=== PATIENT | female | born 1975 | race Caucasian/White ===

== ENCOUNTER 2025-02-21 14:37 | Inpatient (IN) | payer OTHER ==
[~2025-02-21] VITALS: Ht 165.1 cm; Wt 75.6 kg
[2025-02-21 15:07] LABS: Urine Bacteria None Seen /hpf (None Seen)
--- NOTE | 2025-02-21 15:30 | ED.PDOC ---
GI ASSESSMENT HPI Comments 49 year old female presents to the ED with a chief complaint of abdominal pain onset 2 weeks. Patient states she has been experiencing abdominal pain for the past two weeks as well as bilateral flank pain, generalized weakness, yellow bowel movement. Patient states for the past 2 months she has been drinking ETOH daily, last drink was 3 days ago. PMHx RA, gastritis, fibromyalgia. Denies chest pain ,shortness of breath, dizziness, nausea, vomiting. No other symptoms or modifying factors present at this time. Chief Complaint: Abdominal Pain Time Seen by MD: 15:05 Reviewed Notes: Medications, Allergies Information Source: Patient Mode of Arrival: Ambulatory Timing: Weeks Duration: Since onset Prehospital treatment: None Quality: Sharp Vomitus: None Stool: Yellow Severity: Moderate Recent: Ingestion of ETOH Recent Hx of: None Modifying Factors: Nothing Associated sign and symptoms: Abdominal Pain Past Medical History PAST MEDICAL HISTORY: Arthritis Past Medical History (Other): fibromyalgia, gastritis Surgical History: Denies all surgeries Family History Family History: Reviewed,noncontributory to illness, No family hx of Cancer, No family hx of DM, No family hx of Heart brina, No family hx of HTN, No family hx ofKidney brina, No family hx of Liver brina, No family hx of Lung brina, No family hx of Stroke Social History Smoker: Cigarettes, Other Alcohol: Heavy Drugs: Denies Drug Use Lives In: Home Constitutional: reports: weakness Gastrointestinal: reports: abdominal pain, others (yellow bowel movement) Genitourinary: reports: flank pain Neurological: reports: weakness Physical Exam General Appearance: No Apparent Distress, Normal HEENT: Normal ENT Inspection, Pharynx Normal, TMs Normal Neck: Full Range of Motion, Non-Tender, Normal, Normal Inspection Respiratory: Chest Non-Tender, Lungs Clear, No Accessory Muscle Use, No Respiratory Distress, Normal Breath Sounds Cardiovascular: No Edema, No JVD, No Murmur, No Gallop, Normal Peripheral Pulses, Regular Rate/Rhythm Breast Exam: Deferred Gastrointestinal: No Organomegaly, Non Tender, No Pulsatile Mass, Normal Bowel Sounds, Soft Genitalia: Deferred Pelvic: Deferred Rectal: Deferred Extremities: No calf tenderness, Normal capillary refill, Normal inspection, Normal range of motion, Non-tender, No pedal edema Musculoskeletal : Apperance: Normal Neurologic: Alert, starting gate driver II-XII nml as Tested, No Motor Deficits, Normal Affect, Normal Mood, No Sensory Deficits Cerebellar Function: Normal Reflexes: Normal Skin: Dry, Normal Color, Warm Lymphatic: No Adenopathy Was a procedure done? Was a procedure done?: No GI differential Dx Differential Diagnosis: Cholecystitis, Gastroenteritis, GI hemorrhage, Pancreatitis, UTI, Urolithiasis, Dehydration, Electrolyte Imbalance, Food Poisoning, Viral X-Ray, Labs, Meds, VS Vital Signs Date Time Temp Pulse Resp B/P (MAP) Pulse Ox O2 Delivery O2 Flow Rate FiO2 02/21/25 14:44 98.3 89 16 138/88 (105) 99 98.3 Lab Test 02/21/25 16:52 02/21/25 15:35 02/21/25 14:50 Range/Units Troponin I High Sensitivity 3 L < 3 L </=34 ng/L White Blood Count 4.2 L 4.4-10.8 10^3/uL Red Blood Count 3.66 L 4.0-5.20 10^6/uL Hemoglobin 12.1 L 12.2-16.2 g/dL Hematocrit 34.7 L 36.0-46.0 % Mean Corpuscular Volume 94.7 80.0-100.0 fL Mean Corpuscular Hemoglobin 33.0 H 28.0-32.0 pg Mean Corpuscular Hemoglobin Concent 34.8 32.0-36.0 g/dL Red Cell Distribution Width 14.6 H 11.8-14.3 % Platelet Count 166 140-450 10^3/uL Mean Platelet Volume 7.4 6.9-10.8 fL Neutrophils (%) (Auto) 66.8 37.0-80.0 % Lymphocytes (%) (Auto) 23.5 10.0-50.0 % Monocytes (%) (Auto) 7.1 0.0-12.0 % Eosinophils (%) (Auto) 2.0 0.0-7.0 % Basophils (%) (Auto) 0.6 0.0-2.0 % Neutrophils # (Auto) 2.8 1.6-8.6 10 ^3/uL Lymphocytes # (Auto) 1.0 0.4-5.4 10 ^3/uL Monocytes # (Auto) 0.3 0-1.3 10 ^3/uL Eosinophils # (Auto) 0.1 0-0.8 10 ^3/uL Basophils # (Auto) 0 0-0.2 10 ^3/uL Nucleated Red Blood Cells 0.1 % Sodium Level 139 136-145 mmol/L Potassium Level 3.2 L 3.5-5.1 mmol/L Chloride Level 104 98-107 mmol/L Carbon Dioxide Level 23 20-31 mmol/L Anion Gap 12 5-15 Blood Urea Nitrogen 9 9-23 mg/dL Creatinine 0.75 0.550-1.02 mg/dL Glomerular Filtration Rate Calc 98 >90 mL/min BUN/Creatinine Ratio 12.0 10.0-20.0 Serum Glucose 99 74-106 mg/dL Calcium Level 9.6 8.7-10.4 mg/dL Urine Color Yellow Yellow Urine Clarity Turbid H Clear Urine pH 6.5 5.0-9.0 Urine Specific [place] 1.028 1.001-1.035 Urine Protein 1+ H Negative Urine Ketones 1+ H Negative Urine Blood 3+ H Negative /uL Urine Nitrite Negative Negative Urine Bilirubin 1+ H Negative Urine Urobilinogen 2 H Negative mg/dL Urine Leukocyte Esterase Trace Negative /uL Urine RBC 25 0 - 4 /hpf Urine Microscopic WBC 14 H 0-5 /HPF Urine Squamous Epithelial Cells Mod <5 /hpf Urine Bacteria None seen None Seen /hpf Urine Mucus Moderate None Seen Urine Glucose Normal Normal mg/dL Time of 1ST Reevaluation: 15:35 Reevaluation 1ST: Unchanged Patient Education/Counseling: Diagnosis, Treatment, Prognosis Family Education/Counseling: No Family Present Departure 1 Departure Time of Disposition: 17:27 (Patient with generalized weakness, palpitations and worsening abdominal pain and dysuria. We will admit patient for further workup and expert consultation) Impression: Primary Impression: Generalized weakness Additional Impressions: Intractable abdominal pain Dysuria Disposition: ADMITTED INPATIENT Admit to: Med Surg Condition: Serious Critical Care Note Critical Care Time?: No Stability Stability form required: No I personally scribed for ANGELIA KELLY MD ([email or web address]) on 02/21/25 at 15:30. Electronically submitted by Aliyah Viera ([email or web address]). ANGELIA KELLY MD February 21, 2025 15:30
[2025-02-21 15:32] LABS: Urine Blood 3+ /uL (Negative); Urine Clarity Turbid (Clear); Urine Color Yellow (Yellow); Urine Mucus MODERATE (None Seen); Urine Protein, UAD 1+ (Negative); Urine Specific Gravity 1.028 (1.001-1.035); Urine Squamous Epithelial Cell MOD /hpf (<5); Urine Urobilinogen 2 mg/dL (Negative); Urine WBC 14 /HPF (0-5); Urine pH 6.5 (5.0-9.0)
--- NOTE | 2025-02-21 15:36 | DVH ---
CHEST RADIOGRAPH Indication: epigastric pain Technique: Single frontal view of the chest was obtained Comparison: None FINDINGS: The cardiac silhouette is unremarkable. The lungs demonstrate no pulmonary airspace consolidation. Th e pulmonary vasculature is unremarkable. There is no pleural effusion.. There is no pneumothorax. IMPRESSION: 1. No pulmonary airspace consolidation.<< >>
[2025-02-21 15:52] LABS: Basophils # (auto) 0 10 ^3/uL (0-0.2); Basophils % (auto) 0.6 % (0.0-2.0); Eosinophils # (auto) 0.1 10 ^3/uL (0-0.8); Hematocrit 34.7 % (36.0-46.0); Hemoglobin 12.1 g/dL (12.2-16.2); Lymphocytes % (auto) 23.5 % (10.0-50.0); Mean Corpuscular Hgb Conc. 34.8 g/dL (32.0-36.0); Mean Corpuscular Volume 94.7 fL (80.0-100.0); Monocytes # (auto) 0.3 10 ^3/uL (0-1.3); Monocytes % (auto) 7.1 % (0.0-12.0); Neutrophils # (auto) 2.8 10 ^3/uL (1.6-8.6); Neutrophils % (auto) 66.8 % (37.0-80.0); Nucleated Red Blood Cells % 0.1 %; Platelet Count (auto) 166 10^3/uL (140-450); Red Blood Cells 3.66 10^6/uL (4.0-5.20); Red Cell Distribution Width 14.6 % (11.8-14.3); White Blood Cell 4.2 10^3/uL (4.4-10.8)
[2025-02-21 16:07] LABS: Chloride 104 mmol/L (98-107); Sodium 139 mmol/L (136-145)
[2025-02-21 16:08] LABS: Anion Gap 12 (5-15); Calcium 9.6 mg/dL (8.7-10.4); Carbon Dioxide 23 mmol/L (20-31); Potassium 3.2 mmol/L (3.5-5.1)
[2025-02-21 16:13] LABS: Glucose 99 mg/dL (74-106)
[2025-02-21 16:14] LABS: Blood Urea Nitrogen 9 mg/dL (9-23)
[2025-02-21] MEDS: PANTOPRAZOLE 40 MG/10 ML VIAL INJ IV ONE (18:22)
[2025-02-21] MEDS: ONDANSETRON HCL 4 MG/2 ML VIAL IV ONE (18:22)
[2025-02-21] MEDS: KETOROLAC TROMETH 30 MG/ML 1ML VIAL IV ONE (18:22)
[2025-02-21] MEDS: SODIUM CHLORIDE 0.9% 1,000 ML IV ONE (18:27)
[2025-02-21 18:28] VITALS: PULSE 72; RESP 19; O2SAT 98
[2025-02-21] MEDS: IOHEXOL 300 MG/ML 100ML BOTTLE IJ ONE (18:47)
--- NOTE | 2025-02-21 19:18 | DVH ---
Exam: CT CT AB PEL WITH IV CON ONLY History: abdominal pain Comparison Study: None TECHNIQUE: Multidetector CT of the abdomen and pelvis with IV contrast. Axial, coronal and sagittal m ultiplanar reformats were obtained from the axial data set by the technologist. Radiation Dose Information: CT Dose: CTDI volume is 8.88 mGy. Dose-length product is 449.38 mGy*cm FINDINGS: Bibasilar atelectasis. Partially visualized heart is unremarkable. Liver, spleen, gallbladder, pancreas and adrenal glands are unremarkable. Subcentimeter hypodense bilateral renal lesions that are too small to characterize. Otherwise, kidney s, and ureters unremarkable. Mild wall thickening of the urinary bladder. Bilateral essure are noted . Uterus and adnexa otherwise unremarkable. Bilateral ovarian follicles are noted. Mild wall thickening of the distal esophagus. Mild wall thickening of the distal stomach and proximal small bowel. The remainder of the small bowel loops unremarkable. Appendix is unremarkable. Moderat e to large amount of fecal material within the colon. No evidence of intraperitoneal free air or free fluid. No evidence of aortic aneurysm or dissection. No significant lymphadenopathy. Tiny fat containing umbilical hernia. No evidence of acute osseous abnormalities. Moderate degenerati ve changes of the lumbar spine. Sclerotic focus over the right sacral ala, right pubic bone and left proximal femur which may represent bone islands with blastic lesions not excluded. IMPRESSION: Mild wall thickening of the urinary bladder. Recommend correlation with urinalysis for cystitis. Mild wall thickening of the distal esophagus, distal stomach and proximal small bowel Focus which may represent esophagitis and gastroenteritis respectively. Moderate to large amount of fecal material within the colon.
--- NOTE | 2025-02-21 21:56 | DVHHP2 ---
History of Present Illness History of Present Illness Patient is 49 years old female with a past medical history history of rheumatoid arthritis, arthritis, fibromyalgia, history of gastritis, anxiety, GERD came with a complaint of abdominal pain for 2 months. As per patient she has been having abdominal pain in the epigastric area for last 2 months, print she was 10/10 even this morning he she had pain 10/10, burning in nature, constant, aggravated by eating, decreased with the pain medication, no radiation. Patient also endorsed she has chronic cervical and back pain from fibromyalgia. Patient also endorsed that she has been having nausea and vomiting for a while, watery no blood. On further inquiry patient also endorsed dysuria for a few days and she also has a history of UTI 3 times in last couple of months as per patient. Patient is alcoholic, she 2 drinks per day, last drink she to was 3 days before. Patient denied any she running or tremor today. Patient reported she gets alternative constipation and diarrhea, no blood. Patient also Reported she had 3 UTI in last 2 months. Patient denied any fever, acute chest pain or shortness of breath acute joint swelling or redness any sick contact. Initial lab workup revealed Lipase 137, WBC 4.2, hemoglobin 12.1, potassium 3.2, urinalysis ketone positive, leukocyte esterase trace, WBC 14. Chest x-ray no acute abnormality noted. CT abdomen-Mild wall thickening of the urinary bladder. Recommend correlation with urinalysis for cystitis. Mild wall thickening of the distal esophagus, distal stomach and proximal small bowel Focus which may represent esophagitis and gastroenteritis respectively.Moderate to large amount of fecal material within the colon. Past Medical History rheumatoid arthritis, arthritis, fibromyalgia, history of gastritis, anxiety, GERD Past Surgical History Breast implant, Family History Dad has diabetes mellitus mom had breast carcinoma Past Social History Patient smoker, alcoholic to drink per day last drink 3 days before as per patient, denies substance abuse Review of Systems Review of Systems Allergy- NKDA Patient was seen today at the bedside. Cardiovascular- deny acute chest pain or shortness of breath or cough or palpitation Respiratory denies cough or short of breath or wheezing Musculoskeletal-denies acute joint swelling or tenderness or redness Neurological- denies acute dysarthria, dysphagia, change in vision Psychiatry- denies depression or SI or HI Skin- denies acute rash or purpura Allergies: Coded Allergies: NO KNOWN ALLERGIES (Unverified , 02/21/25) Medications Current Medications Medications Dose Ordered Sig/Janae Route Start Time Stop Time Status Last Admin Dose Admin Sodium Chloride 10 ml Q8HR IV 02/21/25 22:00 UNV Acetaminophen 650 mg Q6HP PRN PO 02/21/25 22:00 UNV Pantoprazole Sodium 40 mg DAILY IV 02/22/25 10:00 UNV Sucralfate 1 gm QIDACHS PO 02/21/25 22:00 UNV Ondansetron HCl 4 mg Q6HR IV 02/22/25 00:00 02/23/25 23:59 UNV Potassium Chloride 100 ml @ 50 mls/hr Q2H IV 02/21/25 22:00 02/22/25 01:59 UNV Exam Vital Signs Vital Signs Date Time Temp Pulse Resp B/P (MAP) Pulse Ox O2 Delivery O2 Flow Rate FiO2 02/21/25 20:52 98.0 103 20 133/86 (102) 98 98.0 02/21/25 18:28 Room Air* 0 21 Exam General examination- , alert, oriented HEENT- PEERLA, no acute nasal discharge Cardiovascular- S1-S2 audible, rate and rhythm regular, no murmur Respiratory- CTAB, no wheeze or rhonchi Gastrointestinal-epigastric tenderness+, bowel sound+. Nondistended Musculoskeletal-no acute joint swelling or tenderness or redness Lower extremity- leg edema Neurological- cranial nerves intact, no acute dysarthria or dysphagia Psychiatry- denies depression or SI or HI Skin- no acute rash or purpura Labs/Xrays Labs Test 02/21/25 16:52 02/21/25 15:35 02/21/25 14:50 Range/Units Troponin I High Sensitivity 3 L </=34 ng/L White Blood Count 4.2 L 4.4-10.8 10^3/uL Red Blood Count 3.66 L 4.0-5.20 10^6/uL Hemoglobin 12.1 L 12.2-16.2 g/dL Hematocrit 34.7 L 36.0-46.0 % Mean Corpuscular Volume 94.7 80.0-100.0 fL Mean Corpuscular Hemoglobin 33.0 H 28.0-32.0 pg Mean Corpuscular Hemoglobin Concent 34.8 32.0-36.0 g/dL Red Cell Distribution Width 14.6 H 11.8-14.3 % Platelet Count 166 140-450 10^3/uL Mean Platelet Volume 7.4 6.9-10.8 fL Neutrophils (%) (Auto) 66.8 37.0-80.0 % Lymphocytes (%) (Auto) 23.5 10.0-50.0 % Monocytes (%) (Auto) 7.1 0.0-12.0 % Eosinophils (%) (Auto) 2.0 0.0-7.0 % Basophils (%) (Auto) 0.6 0.0-2.0 % Neutrophils # (Auto) 2.8 1.6-8.6 10 ^3/uL Lymphocytes # (Auto) 1.0 0.4-5.4 10 ^3/uL Monocytes # (Auto) 0.3 0-1.3 10 ^3/uL Eosinophils # (Auto) 0.1 0-0.8 10 ^3/uL Basophils # (Auto) 0 0-0.2 10 ^3/uL Nucleated Red Blood Cells 0.1 % Sodium Level 139 136-145 mmol/L Potassium Level 3.2 L 3.5-5.1 mmol/L Chloride Level 104 98-107 mmol/L Carbon Dioxide Level 23 20-31 mmol/L Anion Gap 12 5-15 Blood Urea Nitrogen 9 9-23 mg/dL Creatinine 0.75 0.550-1.02 mg/dL Glomerular Filtration Rate Calc 98 >90 mL/min BUN/Creatinine Ratio 12.0 10.0-20.0 Serum Glucose 99 74-106 mg/dL Calcium Level 9.6 8.7-10.4 mg/dL Urine Color Yellow Yellow Urine Clarity Turbid H Clear Urine pH 6.5 5.0-9.0 Urine Specific [place] 1.028 1.001-1.035 Urine Protein 1+ H Negative Urine Ketones 1+ H Negative Urine Blood 3+ H Negative /uL Urine Nitrite Negative Negative Urine Bilirubin 1+ H Negative Urine Urobilinogen 2 H Negative mg/dL Urine Leukocyte Esterase Trace Negative /uL Urine RBC 25 0 - 4 /hpf Urine Microscopic WBC 14 H 0-5 /HPF Urine Squamous Epithelial Cells Mod <5 /hpf Urine Bacteria None seen None Seen /hpf Urine Mucus Moderate None Seen Urine Glucose Normal Normal mg/dL Assessment/Plan Assessment/Plan Assessment and plan Intractable nausea and vomiting and abdominal pain likely due to acute pancreatitis/acute gastroduodenitis Acute pancreatitis Intractable nausea and vomiting likely cannabis induced hyperemesis Hypokalemia UTI rheumatoid arthritis, arthritis, fibromyalgia, history of gastritis, anxiety, GERD CT abdomen-Mild wall thickening of the urinary bladder. Mild wall thickening of the distal esophagus, distal stomach and proximal small bowel Focus which may represent esophagitis and gastroenteritis respectively.Moderate to large amount of fecal material within the colon. UDS positive for cannabinoids and benzos Potassium 3.2 Hemoglobin 12.1 WBC 4.2 Lipase 137 Plan Ordered ultrasound of the hepatobiliary system including pancreas Ordered urine culture Ordered IV normal saline Ceftriaxone 1 g IV daily Ordered pantoprazole Ordered sucralfate Supplemented potassium Ordered Lactulose ordered Docusate Ordered HIV test Goals of care, Code status ; discussed with >15 minutes PUD prophylaxis: Pantoprazole DVT prophylaxis: Patient Ambulating Plan discussed with Dr. Werner , nursing staff, Total time spent on patient evaluation, chart review, assessment and plan, discussion discussion >35 minutes Plan discussed with: Patient, Other (RN) My Orders Orders - JUAN BAZAN RESIDENT Procedure Category Date Status Time Admit ADMIT 02/21/25 Transmitted 21:48 Code Status CODE 02/21/25 Transmitted 21:48 Sodium Chloride Lock PHA 02/21/25 Logged (Saline Lock Ns) 22:00 Complete Blood Count LAB 02/22/25 Verified 04:00 Comprehensive LAB 02/22/25 Verified Metabolic Panel 04:00 Acetaminophen Tablet PHA 02/21/25 Logged (Tylenol Tablet) 22:00 Clear Liq Diet DIET 02/22/25 Transmitted Breakfast Notify Of Changes SARY 02/21/25 In Process From Base 21:48 Pantoprazole PHA 02/21/25 Logged (Protonix) 22:00 Pantoprazole PHA 02/22/25 Logged (Protonix) 10:00 Sucralfate Tab PHA 02/21/25 Logged (Carafate Tab) 22:00 Sucralfate Tab PHA 02/21/25 Logged (Carafate Tab) 22:00 Ondansetron Hcl PHA 02/22/25 Transmitted (Zofran) 00:00 Potassium Chl PHA 02/21/25 Logged 20meq/100ml 22:00 Thyroid Stimulating LAB 02/21/25 Verified Hormone 21:52 Hemoglobin A1c LAB 02/21/25 Verified 21:52 Date of Service: February 21, 2025 Billing Provider: FLORENCE WERNER MD Common Visit Codes: [id number] INP/OBS CARE (HIGH) Secondary Visit Codes: [id number] CARE PLAN 30 MINUTES JUAN BAZAN RESIDENT February 21, 2025 21:56
[2025-02-21] MEDS ORDERED: POTASSIUM CHL 20MEQ/100ML 100 ML IV SCH (22:00)
[2025-02-21] MEDS: SODIUM CHLOR 0.9% PF (SALINE LOCK) 10ML VIAL/SYR IV SCH (22:00)
[2025-02-21 22:31] LABS: Cannabinoid Screen, Urine Pos (NEGATIVE)
[2025-02-21 22:34] LABS: Amphetamine Screen, Urine Neg (NEGATIVE); Barbiturate Scree,Urine Neg (NEGATIVE); Benzodiazephine Screen, Urine Pos (NEGATIVE); Cocaine Screen, Urine Neg (NEGATIVE); Opiate Scree,Urine Pos (NEGATIVE); Phencyclidine Screen, Urine Neg (NEGATIVE)
[2025-02-21] MEDS: SUCRALFATE 1 GM TAB PO ONE (23:05)
[2025-02-21] MEDS: POTASSIUM EFFERVESENT TAB 25 MEQ GT ONE (23:23)
[2025-02-21] MEDS: SUCRALFATE 1 GM TAB PO SCH (23:24)
[2025-02-21 23:30] VITALS: BP 138/90; PULSE 80; RESP 18; TEMP 98; O2SAT 98
[2025-02-21] MEDS ORDERED: LACTULOSE 20Gm/30ML SOLN PO PRN (23:30)
[2025-02-21 23:36] VITALS: PULSE 80; RESP 18; O2SAT 98
[2025-02-21 23:52] LABS: % Iron Saturation 17.4 % (15-50)
[2025-02-22] VITALS (7 sets, daily range): BP systolic 108–138; BP diastolic 61–90; PULSE 77–80; RESP 16–18; TEMP 97.8–98.8; O2SAT 94–98
[2025-02-22] MEDS: THIAMINE 100mg/ml INJ (200mg/2ml VIAL) IV ONE ×2 (00:25→06:30)
[2025-02-22] MEDS: PANTOPRAZOLE 40 MG/10 ML VIAL INJ IV ONE (00:29)
[2025-02-22] MEDS: ONDANSETRON HCL 4 MG/2 ML VIAL IV SCH (00:33)
[2025-02-22] MEDS: FOLIC ACID 1 MG in D5W 5% 50 ML INJ ONE (00:39)
[2025-02-22] MEDS: LACTULOSE 20Gm/30ML SOLN PO ONE (00:43)
[2025-02-22] MEDS: cefTRIAXone 1GM/50ML D5W 50 ML IV ONE (01:20)
[2025-02-22] MEDS: FOLIC ACID 1 MG, MAGNESIUM SULF SDV 50% 8 MEQ, MULTIPLE VITAMIN 10 ML, THIAMINE INJ 100... INJ STA (02:09)
[2025-02-22 06:58] LABS: Basophils # (auto) 0 10 ^3/uL (0-0.2); Basophils % (auto) 0.5 % (0.0-2.0); Eosinophils # (auto) 0.1 10 ^3/uL (0-0.8); Eosinophils % (auto) 2.7 % (0.0-7.0); Hemoglobin 10.4 g/dL (12.2-16.2); Lymphocytes # (auto) 1.4 10 ^3/uL (0.4-5.4); Lymphocytes % (auto) 33.7 % (10.0-50.0); Mean Corpuscular Hemoglobin 33.8 pg (28.0-32.0); Mean Corpuscular Hgb Conc. 34.7 g/dL (32.0-36.0); Mean Corpuscular Volume 97.3 fL (80.0-100.0); Monocytes # (auto) 0.3 10 ^3/uL (0-1.3); Monocytes % (auto) 7.4 % (0.0-12.0); Neutrophils # (auto) 2.2 10 ^3/uL (1.6-8.6); Neutrophils % (auto) 55.7 % (37.0-80.0); Nucleated Red Blood Cells % 0.6 %; Platelet Count (auto) 142 10^3/uL (140-450); Red Blood Cells 3.08 10^6/uL (4.0-5.20); Red Cell Distribution Width 15.3 % (11.8-14.3)
[2025-02-22 07:07] LABS: Alanine Aminotransferase 17 U/L (7-40); Albumin 3.7 g/dL (3.2-4.8); Alkaline Phosphatase 88 U/L (46-116); Anion Gap 12 (5-15); Aspartate Aminotransferase 35 U/L (13-40); BUN/Creatinine Ratio 9.1 (10.0-20.0); CRP High Sensitivity 0.41 mg/dL (<1.0); Calcium 8.7 mg/dL (8.7-10.4); Carbon Dioxide 22 mmol/L (20-31); Chloride 106 mmol/L (98-107); Cholesterol 174 mg/dL (< 200); Glucose 80 mg/dL (74-106); LDL Cholesterol 72 mg/dL (< 100); Sodium 140 mmol/L (136-145); Total Protein 5.8 g/dL (5.7-8.2); Triglycerides 61 mg/dL (< 150)
[2025-02-22 07:17] LABS: Bilirubin, Total 0.3 mg/dL (0.2-1.0); Blood Urea Nitrogen 6 mg/dL (9-23); HDL Cholesterol 87 mg/dL (40-59); Potassium 2.9 mmol/L (3.5-5.1)
[2025-02-22] MEDS: cefTRIAXone 1GM/50ML D5W 50 ML IV SCH (09:35)
[2025-02-22] MEDS: PANTOPRAZOLE 40 MG/10 ML VIAL INJ IV SCH (09:36)
[2025-02-22] MEDS: FOLIC ACID 1 MG TAB PO SCH (09:36)
[2025-02-22] MEDS: POTASSIUM EFFERVESENT TAB 25 MEQ PO ONE (09:38)
[2025-02-22] MEDS: THIAMINE 100mg/ml INJ (200mg/2ml VIAL) IV SCH (09:40)
[2025-02-22] MEDS: DOCUSATE SOD 100 MG CAP PO SCH (09:45)
[2025-02-22] MEDS: SODIUM CHLORIDE 0.9% 1,000 ML IV SCH (09:45)
[2025-02-22] MEDS ORDERED: FOLIC ACID 1 MG in D5W 5% 50 ML INJ SCH (10:00)
--- NOTE | 2025-02-22 10:19 | DVH ---
EXAM: US Abdomen Limited, Right Upper Quadrant CLINICAL INDICATION: abdominal pain TECHNIQUE: Real-time ultrasound of the right upper quadrant with image documentation. COMPARISON: None FINDINGS: LIVER: Liver measures up to 15.2 cm. Fatty infiltration of the liver. No intrahepatic bile duct d ilation. GALLBLADDER: Unremarkable. No gallstones. COMMON BILE DUCT: Unremarkable as visualized. No stones. No dilation. Common bile duct measures 0.43 cm in diameter. PANCREAS: Unremarkable as visualized. RIGHT KIDNEY: Right kidney measures up to 10.1 cm. No stones. No hydronephrosis. OTHER FINDINGS: . . IMPRESSION: Fatty infiltration of the liver.
[2025-02-22] MEDS: HYDROcodone-ACET 5/325MG TAB PO PRN (14:49)
--- NOTE | 2025-02-22 17:03 | DVHPNRES ---
Progress Note Date Seen: February 22, 2025 Resident Creating Document: JACKIE GUILLENCELESTINO RESIDENT Medical Necessity Reason Pt with a Central, PICC or Fol: No Subjective Review of Systems Patient is a 49-year-old female with a past medical history of rheumatoid arthritis, fibromyalgia, history of gastritis, GERD, anxiety, substance use and alcohol use disorder presented to the ED with a chief complaint of worsening abdominal pain for the last 2 weeks. Patient reports that earlier this year in October she started to have worsening abdominal pain associated with the symptoms of indigestion, intractable nausea and loose stools. Patient reported that she has been drinking alcohol about 2-3 large drinks every day, smokes cigarettes and vapes. In November she underwent a upper EGD at [facility] where she was told about having gastritis and was started on Protonix which according to the patient gives her some relief. Patient continues to smoke and drink alcohol. Patient denied any hematemesis or melena, weight loss, night sweats. Patient also reported of dysuria and has been treated for UTI in the last couple of months for 3 times. Past medical history: As per HPI Past surgical history: Breast implant, Social history: Patient is a current smoker half pack per day, drinks alcohol 3 drinks per day, substance use Home medications: Protonix 40 mg, simethicone, venlafaxine 37.5, bupropion 15 mg b.i.d., alprazolam 1 mg Review of systems Patient seen and examined at the bedside Reports of diffuse abdominal pain and nausea but no vomiting Denies any fever, chills Objective vital signs Vital Sign Date Time Temp Pulse Resp B/P (MAP) Pulse Ox O2 Delivery O2 Flow Rate FiO2 02/22/25 16:00 98.5 80 16 121/83 (96) 97 98.5 02/21/25 23:36 Room Air* 0 21 Total Intake and Output 02/21/25 02/21/25 02/22/25 15:00 23:00 07:00 Intake Total 1000 ml 1000 ml Balance 1000 ml 1000 ml medications Current Medications Medications Dose Ordered Sig/Janae Route Start Time Stop Time Status Last Admin Dose Admin Sodium Chloride 10 ml Q8HR IV 02/21/25 22:00 02/22/25 06:11 10 ML Acetaminophen 650 mg Q6HP PRN PO 02/21/25 22:00 Pantoprazole Sodium 40 mg DAILY IV 02/22/25 10:00 02/22/25 09:36 40 MG Thiamine HCl 100 mg DAILY IV 02/22/25 10:00 Ceftriaxone Sodium 50 ml @ 100 mls/hr DAILY@09 IV 02/22/25 09:00 02/22/25 09:35 100 MLS/HR Folic Acid 1 mg DAILY PO 02/22/25 10:00 02/22/25 09:36 1 MG Sodium Chloride 1,000 ml @ 100 mls/hr Q10H IV 02/22/25 06:00 02/22/25 09:45 100 MLS/HR Ondansetron HCl 4 mg Q6HPRN PRN IV 02/22/25 18:00 Sucralfate 1 gm TID@0600,1130,2200 PO 02/22/25 22:00 Acetaminophen/ Hydrocodone Bitart 1 tab Q6HPRN PRN PO 02/22/25 14:15 02/22/25 14:49 1 TAB Alprazolam 0.5 mg DAILYPRN PRN PO 02/22/25 14:15 Examination Constitutional: Patient is alert and oriented to time, place and person does not appear to be any acute distress Gen - no pallor, no icterus, no cyanosis, no clubbing, no LAD, no edema . Skin - Patients skin is warm and dry.. HEENT - normocephalic, atraumatic, moist mucous membranes. Neck - full ROM, no LAD, no JVD Pulmonary - B/L equal breath sounds. no crackles , no wheezing, no stridor. cardiovascular - regular S1,S2 heard. no murmurs heard. GI - soft, diffusely tender abdomen. no hepatospleenomegaly. Bowel sounds normoactive Neurological - Patient is A/O X 3 . Bilateral upper extremity strength 5/5, bilateral lower extremity strength 5/5, no facial droop, normal speech, no tremor, no sensory deficiets. laboratory and microbiology Laboratory Tests 02/22/25 04:53 Test 02/22/25 04:53 Range/Units Serum Glucose 80 74-106 mg/dL Problem List/Assessment/Plan Problem List/Assessment/Plan Intractable abdominal pain and nausea Acute pancreatitis less likely Acute on chronic gastroduodenitis ?Constipation GERD - CT abdomen pelvis shows mild wall thickening of the distal esophagus, distal stomach and proximal small will which may represent esophagitis and gastroenteritis - right upper quadrant ultrasound shows fatty infiltration of the liver, normal gallbladder and bile duct - IV Protonix - sucralfate p.o. - ceftriaxone 1 g daily - IV fluids - clear liquid diet - lactulose p.r.n. - gastroenterology consulted Alcohol use disorder CIWA score less than 8, no alcohol withdrawal Generalized anxiety disorder Major depressive disorder - alprazolam 0.5 mg prn - thiamine 100 mg IV - folic acid Hypokalemia - replenished DVT prophylaxis: Enoxaparin PUD prophylaxis: Protonix Goals of care discussed with the patient for over 29 minutes. Full code Plan discussed with Dr. Whatley Plan discussed with: Patient My Orders My Orders Orders - SERINA GUILLEN Procedure Category Date Status Time Ondansetron Hcl PHA 02/22/25 In Process (Zofran) 18:00 Sucralfate Susp PHA 02/22/25 In Process (Carafate Susp) 22:00 * Gi Dvh It Support Specialist CONS 02/22/25 Transmitted 12:50 T-Transglutaminase LAB 02/22/25 In Process (Ttg) Iga 12:50 Hydrocodone-Acet PHA 02/22/25 In Process 5/325mg Tab ([place] 14:15 Alprazolam Tablet PHA 02/22/25 In Process (Xanax Tablet) 14:15 Date of Service: February 22, 2025 Billing Provider: NARESH WHATLEY MD Common Visit Codes: [id number] INP/OBS CARE(HIGH) SERINA GUILLEN RESIDENT February 22, 2025 17:03 NARESH WHATLEY MD February 22, 2025 21:46
--- NOTE | 2025-02-22 19:39 | DVHINCON2 ---
Date of service: February 22, [address] Shannon Reason for Consultation Abdominal pain nausea vomiting History of Present Illness This 49-year-old female with a history of rheumatoid arthritis point fibromyalgia admitted with complains nausea vomiting no bleeding patient has got severe back pain and cervical pain from fibromyalgia and arthritis patient has been having also problems with UTI on and off. Patient has history of moderate drinking also. Patient now has got complaints of constipation and and diarrhea alternating no bleeding In the ER her lipase level was found to be 137 CT scan showed some mild thickening of the bladder. And some thickening of the distal esophagus stomach and proximal small bowel possibility of esophagitis and gastroenteritis to be considered as well as also some moderate amount of fecal material within the colon Patient is getting a repeat CAT scan with oral contrast tomorrow. Past Medical History Rheumatoid arthritis fibromyalgia history of gastritis GERD Past Surgical History Breast implants history Family History: Diabetes mellitus G8 MOTHER FH: breast cancer G8 FATHER Family History Mom with breast cancer Social History History of smoking and drinking denies substance abuse Allergies: Coded Allergies: NO KNOWN ALLERGIES (Unverified , 02/21/25) Current Medications Current Medications Medications (Trade) Dose Ordered Sig/Janae Route PRN Reason Start Time Stop Time Status Last Admin Sodium Chloride (Saline Lock Ns) 10 ml Q8HR IV 02/21/25 22:00 02/22/25 06:11 Acetaminophen (Tylenol Tablet) 650 mg Q6HP PRN PO PAIN SCALE 1-3 OR TEMP>100.4 02/21/25 22:00 Pantoprazole Sodium (Protonix) 40 mg DAILY IV 02/22/25 10:00 02/22/25 09:36 Sucralfate (Carafate Tab) 1 gm QIDACHS PO 02/21/25 22:00 02/22/25 12:59 DC 02/22/25 12:11 Ondansetron HCl (Zofran) 4 mg Q6HR IV 02/22/25 00:00 02/22/25 12:59 DC 02/22/25 12:11 Potassium Chloride 100 ml @ 50 mls/hr Q2H IV 02/21/25 22:00 02/21/25 22:57 DC Thiamine HCl 100 mg DAILY IV 02/22/25 10:00 Folic Acid 1 mg/ Dextrose 50.2 ml @ 200.8 mls/ hr DAILY INJ 02/22/25 10:00 02/22/25 02:39 DC Folic Acid 1 mg/ Magnesium Sulfate 8 meq/ Multivitamins 10 ml/Thiamine HCl 100 mg/Sodium Chloride 1,013.2 ml @ 126.247 mls/hr DAILY@1800 STAT INJ 02/21/25 21:58 02/22/25 05:59 DC 02/22/25 02:09 Ceftriaxone Sodium 50 ml @ 100 mls/hr DAILY@09 IV 02/22/25 09:00 02/22/25 09:35 Lactulose 30 ml BIDPRN PRN PO FOR CONSTIPATION 02/21/25 23:30 02/22/25 12:59 DC Docusate Sodium (Colace Capsule) 100 mg BID PO 02/22/25 10:00 02/22/25 12:59 DC Folic Acid 1 mg DAILY PO 02/22/25 10:00 02/22/25 09:36 Sodium Chloride 1,000 ml @ 100 mls/hr Q10H IV 02/22/25 06:00 02/22/25 09:45 Ondansetron HCl (Zofran) 4 mg Q6HPRN PRN IV NAUSEA / VOMITING 02/22/25 18:00 Sucralfate (Carafate Susp) 1 gm TID@0600,1130,2200 PO 02/22/25 22:00 Acetaminophen/ Hydrocodone Bitart ([place] 5/325MG Tab) 1 tab Q6HPRN PRN PO MODERATE PAIN (4-6 PAIN SCALE) 02/22/25 14:15 02/22/25 14:49 Alprazolam (Xanax Tablet) 0.5 mg DAILYPRN PRN PO ANXIETY 02/22/25 14:15 Enoxaparin Sodium (Lovenox) 40 mg DAILY SC 02/23/25 10:00 Review of Systems Noncontributory Vital Signs Vital Signs Date Time Temp Pulse Resp B/P (MAP) Pulse Ox O2 Delivery O2 Flow Rate FiO2 02/22/25 16:00 98.5 80 16 121/83 (96) 97 98.5 02/22/25 07:40 Room Air* 0 21 Physical Exam Moderately built and nourished female in no acute distress chronically ill- looking and depressed Vitals stable HEENT examination no pallor no icterus Lungs are clear Cardiovascular unremarkable Abdomen soft mild tenderness in the epigastrium and both upper quadrants No rigidity no guarding no masses bowel sounds normal Extremities no edema Neuro grossly intact Labs/Diagnostic Data Labs Test 02/22/25 13:05 02/22/25 07:19 02/22/25 04:53 02/22/25 02:15 Range/Units Lactic Acid Level 0.7 0.4-2.0 mmol/L White Blood Count 4.0 L 4.4-10.8 10^3/uL Red Blood Count 3.08 L 4.0-5.20 10^6/uL Hemoglobin 10.4 L 12.2-16.2 g/dL Hematocrit 30.0 #L 36.0-46.0 % Mean Corpuscular Volume 97.3 80.0-100.0 fL Mean Corpuscular Hemoglobin 33.8 H 28.0-32.0 pg Mean Corpuscular Hemoglobin Concent 34.7 32.0-36.0 g/dL Red Cell Distribution Width 15.3 H 11.8-14.3 % Platelet Count 142 140-450 10^3/uL Mean Platelet Volume 7.4 6.9-10.8 fL Neutrophils (%) (Auto) 55.7 37.0-80.0 % Lymphocytes (%) (Auto) 33.7 10.0-50.0 % Monocytes (%) (Auto) 7.4 0.0-12.0 % Eosinophils (%) (Auto) 2.7 0.0-7.0 % Basophils (%) (Auto) 0.5 0.0-2.0 % Neutrophils # (Auto) 2.2 1.6-8.6 10 ^3/uL Lymphocytes # (Auto) 1.4 0.4-5.4 10 ^3/uL Monocytes # (Auto) 0.3 0-1.3 10 ^3/uL Eosinophils # (Auto) 0.1 0-0.8 10 ^3/uL Basophils # (Auto) 0 0-0.2 10 ^3/uL Nucleated Red Blood Cells 0.6 % Sodium Level 140 136-145 mmol/L Potassium Level 2.9 L 3.5-5.1 mmol/L Chloride Level 106 98-107 mmol/L Carbon Dioxide Level 22 20-31 mmol/L Anion Gap 12 5-15 Blood Urea Nitrogen 6 L 9-23 mg/dL Creatinine 0.66 0.550-1.02 mg/dL Glomerular Filtration Rate Calc 108 >90 mL/min BUN/Creatinine Ratio 9.1 L 10.0-20.0 Serum Glucose 80 74-106 mg/dL Calcium Level 8.7 8.7-10.4 mg/dL Total Bilirubin 0.3 0.2-1.0 mg/dL Aspartate Amino Transferase (AST) 35 13-40 U/L Alanine Aminotransferase (ALT) 17 7-40 U/L Alkaline Phosphatase 88 46-116 U/L C-Reactive Protein High Sensitivity 0.41 <1.0 mg/dL Total Protein 5.8 5.7-8.2 g/dL Albumin 3.7 3.2-4.8 g/dL Triglycerides Level 61 < 150 mg/dL Cholesterol Level 174 < 200 mg/dL LDL Cholesterol 72 < 100 mg/dL HDL Cholesterol 87 H 40-59 mg/dL Beta HCG, Quantitative 0.9 L 1.5-4.2 mIU/mL Stool for White Cells None seen Test 02/21/25 16:52 02/21/25 15:35 02/21/25 14:50 Range/Units Magnesium Level 2.0 1.6-2.6 mg/dL Troponin I High Sensitivity 3 L </=34 ng/L Lipase 136 H 12-53 U/L Hemoglobin A1c 4.7 <5.7 % A1C Iron Level 56 50-170 ug/dL Total Iron Binding Capacity 322 250-425 ug/dL Percent Iron Saturation 17.4 15-50 % Ferritin 77.4 10-291 ng/mL Thyroid Stimulating Hormone (TSH) 1.40 0.55-4.78 uIU/mL Plasma/Serum Blood Alcohol < 3.0 <10 mg/dL Urine Color Yellow Yellow Urine Clarity Turbid H Clear Urine pH 6.5 5.0-9.0 Urine Specific [place] 1.028 1.001-1.035 Urine Protein 1+ H Negative Urine Ketones 1+ H Negative Urine Blood 3+ H Negative /uL Urine Nitrite Negative Negative Urine Bilirubin 1+ H Negative Urine Urobilinogen 2 H Negative mg/dL Urine Leukocyte Esterase Trace Negative /uL Urine RBC 25 0 - 4 /hpf Urine Microscopic WBC 14 H 0-5 /HPF Urine Squamous Epithelial Cells Mod <5 /hpf Urine Bacteria None seen None Seen /hpf Urine Mucus Moderate None Seen Urine Glucose Normal Normal mg/dL Urine Opiates Screen Pos NEGATIVE Urine Fentanyl Screen Neg NEGATIVE Urine Barbiturates Screen Neg NEGATIVE Urine Phencyclidine Screen Neg NEGATIVE Urine Amphetamines Screen Neg NEGATIVE Urine Benzodiazepines Screen Pos NEGATIVE Urine Cocaine Screen Neg NEGATIVE Urine Cannabinoids Screen Pos NEGATIVE Assessment 41-year-old female with a history of arthritis fibromyalgia and GERD admitted with complaints of abdominal pain nausea vomiting some diarrhea we will alternatives constipation unable to keep food down patient has history of some UTI her lipase level was high has had some mild abdomen in tenderness CT scans in the epigastric area CT scan showed mild wall thickening of the esophagus the distal stomach and small bowel. Clinical impression is possible esophagitis gastritis possibility of enteritis of the pathology can not be excluded Plan/Recommendation will recommend EGD evaluation to evaluate the distal esophagus especially to ensure there is any strictures or other pathology or eosinophilic esophagitis and further workup and treatment depending upon the findings will Wait until the CT scan is done with contrast and then decide about the EGD evaluation depending upon the findings will treat with PPIs in the meanwhile Thank you Dr. Mixon Plan discussed with: Patient UMU MIXON MD February 22, 2025 19:39
[2025-02-22] MEDS: ALPRAZolam 0.5 MG TAB PO PRN (19:49)
[2025-02-22] MEDS: SUCRALFATE 1 GM/10 ML ORAL SUSP PO SCH (21:05)
[2025-02-22] MEDS: SOD CHL 0.9%/ KCL 40MEQ 1,000 ML IV SCH (22:44)
[2025-02-23] VITALS (7 sets, daily range): BP systolic 128–139; BP diastolic 70–95; PULSE 67–79; RESP 15–18; TEMP 97.8–98.8; O2SAT 94–100
[2025-02-23 08:49] LABS: Sodium 143 mmol/L (136-145)
[2025-02-23 08:50] LABS: Anion Gap 10 (5-15); Carbon Dioxide 25 mmol/L (20-31)
[2025-02-23 08:55] LABS: Glucose 86 mg/dL (74-106)
[2025-02-23 08:56] LABS: Magnesium 2.3 mg/dL (1.6-2.6)
[2025-02-23 08:57] LABS: Amylase 88 U/L (30-118)
[2025-02-23 08:58] LABS: Phosphorus 3.7 mg/dL (2.4-5.1)
[2025-02-23 08:59] LABS: Basophils # (auto) 0 10 ^3/uL (0-0.2); Basophils % (auto) 0.6 % (0.0-2.0); Eosinophils # (auto) 0.1 10 ^3/uL (0-0.8); Eosinophils % (auto) 2.8 % (0.0-7.0); Hematocrit 29.8 % (36.0-46.0); Hemoglobin 10.4 g/dL (12.2-16.2); Lymphocytes # (auto) 1.3 10 ^3/uL (0.4-5.4); Lymphocytes % (auto) 37.4 % (10.0-50.0); Mean Corpuscular Hemoglobin 33.6 pg (28.0-32.0); Mean Corpuscular Hgb Conc. 35.1 g/dL (32.0-36.0); Mean Corpuscular Volume 95.9 fL (80.0-100.0); Monocytes # (auto) 0.3 10 ^3/uL (0-1.3); Monocytes % (auto) 8.5 % (0.0-12.0); Neutrophils # (auto) 1.7 10 ^3/uL (1.6-8.6); Neutrophils % (auto) 50.7 % (37.0-80.0); Nucleated Red Blood Cells % 0.1 %; Platelet Count (auto) 149 10^3/uL (140-450); Red Blood Cells 3.11 10^6/uL (4.0-5.20); Red Cell Distribution Width 15.4 % (11.8-14.3); White Blood Cell 3.4 10^3/uL (4.4-10.8)
[2025-02-23 09:00] LABS: BUN/Creatinine Ratio 7.9 (10.0-20.0); Blood Urea Nitrogen < 5 mg/dL (9-23); Calcium 8.1 mg/dL (8.7-10.4); Chloride 108 mmol/L (98-107); Lipase 135 U/L (12-53); Potassium 3.3 mmol/L (3.5-5.1)
[2025-02-23] MEDS ORDERED: OMNIPAQUE 12mg/ml 500ml ORAL SOLUTION PO ONE (09:48)
[2025-02-23] MEDS ORDERED: IOHEXOL 300 MG/ML 100ML BOTTLE IJ ONE (09:49)
[2025-02-23] MEDS: ENOXAPARIN SOD 40 MG/0.4 ML SYRINGE SC SCH (10:00)
--- NOTE | 2025-02-23 10:59 | DVH ---
Procedure: CT CT ABD PELVIS W CON-ORAL IV 02/23/2025 09:55 AM Indication: gastroduodenitis on CT, pancreatitis Comparison Study: CT CT AB PEL WITH IV CON ONLY on DOS: 02/21/25 Technique: Axial images were obtained and reformatted in coronal and sagittal planes. All CT scans at this medical facility are performed using dose modulation techniques as appropriate to a performed e xam including the following: Automated exposure control was utilized; adjustment of the MA and/or KV according to patient size; and use of iterative reconstruction technique. CT Dose: CTDI volume is 5.9 mGy. Dose-length product is 325 mGy*cm FINDINGS: Lower Chest: Unremarkable. Hepatobiliary: Unremarkable. Spleen: Unremarkable. Pancreas: Unremarkable. Adrenal Glands: Unremarkable. tract: The kidneys are normal in size bilaterally without hydronephrosis or nephrolithiasis. The u rinary bladder is unremarkable. GI tract: Distal esophageal wall thickening. The stomach is grossly normal in appearance. No evidence of small bowel obstruction. Circumferential mural thickening of terminal ileum and entire large krystal l noted with mild pericolonic inflammation. The appendix is mildly dilated measuring up to 1 cm in ca liber with mild mural thickening. No appendicolith. No free fluid or air in the abdomen or pelvis. Lymphatics: No mesenteric, retroperitoneal or periportal lymphadenopathy. Vasculature: The abdominal aorta is normal in caliber. Pelvic Organs: Anteverted uterus. Bilateral tubal ligation strings are noted. No adnexal lesion. Bones/soft tissues: No acute abnormality. Other: None. IMPRESSION: 1. Terminal ileitis and pancolitis that could be infectious or inflammatory in nature. In addition, t here is mild dilatation mural thickening of the appendix that could be related to the underlying ente rocolitis or reflect developing appendicitis. Recommend clinical and biochemical correlation.
--- NOTE | 2025-02-23 11:27 | DVHPN2 ---
Subjective Had epigastric pain earlier this morning. She has diarrhea Reviewed: Care Plan, H&P, Labs, Medications, Previous Orders, Radiology, Other (Building Drafter/GI) Changes from previous H/P or p: No Changes Objective Vitals Vital Signs Date Time Temp Pulse Resp B/P (MAP) Pulse Ox O2 Delivery O2 Flow Rate FiO2 02/23/25 09:00 98.1 71 15 131/70 (90) 97 98.1 02/22/25 20:00 Room Air* 0 21 Intake/Output Intake and Output 02/23/25 07:00 Intake Total 3630 ml Output Total 800 ml Balance 2830 ml Intake Oral 1980 ml IV Total 1650 ml Output Urine Total 800 ml # Voids 4 # Bowel Movements 9 General Appearance: Alert, Oriented X3, Cooperative, No acute distress HEENT: Atraumatic Lungs: Clear to auscultation Cardiovascular: Regular rate Abdomen: Soft, Other (With tenderness in the epigastric and upper quadrant area) Medications Current Medications Medications Dose Ordered Sig/Janae Route Start Time Stop Time Status Last Admin Dose Admin Sodium Chloride 10 ml Q8HR IV 02/21/25 22:00 02/23/25 05:33 10 ML Acetaminophen 650 mg Q6HP PRN PO 02/21/25 22:00 Pantoprazole Sodium 40 mg DAILY IV 02/22/25 10:00 02/22/25 09:36 40 MG Thiamine HCl 100 mg DAILY IV 02/22/25 10:00 Ceftriaxone Sodium 50 ml @ 100 mls/hr DAILY@09 IV 02/22/25 09:00 02/22/25 09:35 100 MLS/HR Folic Acid 1 mg DAILY PO 02/22/25 10:00 02/22/25 09:36 1 MG Ondansetron HCl 4 mg Q6HPRN PRN IV 02/22/25 18:00 Sucralfate 1 gm TID@0600,1130,2200 PO 02/22/25 22:00 02/23/25 05:33 1 GM Acetaminophen/ Hydrocodone Bitart 1 tab Q6HPRN PRN PO 02/22/25 14:15 02/22/25 14:49 1 TAB Alprazolam 0.5 mg DAILYPRN PRN PO 02/22/25 14:15 02/22/25 19:49 0.5 MG Enoxaparin Sodium 40 mg DAILY SC 02/23/25 10:00 Potassium Chloride/Sodium Chloride 1,000 ml @ 100 mls/hr Q10H IV 02/22/25 22:00 02/22/25 22:44 100 MLS/HR Laboratory Results Laboratory Tests 02/23/25 07:09 Chemistry Test 02/23/25 07:09 Calcium Level 8.1 mg/dL (8.7-10.4) L Magnesium Level 2.3 mg/dL (1.6-2.6) Phosphorus Level 3.7 mg/dL (2.4-5.1) Lipid panel Test 02/23/25 07:09 Lipase 135 U/L (12-53) H Urinalysis Test 02/21/25 14:50 Urine Color Yellow (Yellow) Urine Clarity Turbid (Clear) H Urine pH 6.5 (5.0-9.0) Urine Specific [place] 1.028 (1.001-1.035) Urine Protein 1+ (Negative) H Urine Ketones 1+ (Negative) H Urine Blood 3+ /uL (Negative) H Urine Nitrite Negative (Negative) Urine Bilirubin 1+ (Negative) H Urine Urobilinogen 2 mg/dL (Negative) H Urine Leukocyte Esterase Trace /uL (Negative) Urine RBC 25 /hpf (0 - 4) Urine Microscopic WBC 14 /HPF (0-5) H Urine Squamous Epithelial Cells Mod /hpf (<5) Urine Bacteria None seen /hpf (None Seen) Urine Mucus Moderate (None Seen) Urine Glucose Normal mg/dL (Normal) Assessment/Plan Assessment/Plan Abdominal pain Esophagitis Terminal ileitis and pancolitis Questionable appendicitis Leukopenia Anemia Hypokalemia Questionable pancreatitis with elevated lipase Plan: IV Flagyl . EGD and possibly colonoscopy by GI. Further plan per orders Plan discussed with: Patient My Orders Orders - NARESH WHATLEY MD Procedure Category Date Status Time Sod Chl 0.9%/ Kcl PHA 02/22/25 In Process 40meq 22:00 Date of Service: February 23, 2025 Billing Provider: NARESH WHATLEY MD Common Visit Codes: [id number] INP/OBS CARE(HIGH) NARESH WHATLEY MD February 23, 2025 11:27
[2025-02-23 12:12] LABS: INR 1.03 (0.9-1.15); Prothrombin Time 10.9 sec (9.3-11.8)
--- NOTE | 2025-02-23 14:02 | DVHINCON2 ---
Date of service: February 23, 2025 History of Present Illness 49-year-old female complaining of two week history of epigastric abdominal pain radiating to bilateral flank region. Patient has been drinking alcohol daily for past two months. Patient also reports some yellowish bowel movements. Currently he is able to tolerate p.o. without nausea or vomiting. Past Medical History History of gastritis. Fibromyalgia. Arthritis. Past Surgical History Breast augmentation. Family History: Diabetes mellitus G8 MOTHER FH: breast cancer G8 FATHER Family History Noncontributory Social History Heavy alcohol and tobacco use. Denies any IV drug use. Allergies: Coded Allergies: NO KNOWN ALLERGIES (Unverified , 02/21/25) Current Medications Current Medications Medications (Trade) Dose Ordered Sig/Janae Route PRN Reason Start Time Stop Time Status Last Admin Ondansetron HCl (Zofran) 4 mg Q6HPRN PRN IV NAUSEA / VOMITING 02/22/25 18:00 Sucralfate (Carafate Susp) 1 gm TID@0600,1130,2200 PO 02/22/25 22:00 02/23/25 11:30 Acetaminophen/ Hydrocodone Bitart ([place] 5/325MG Tab) 1 tab Q6HPRN PRN PO MODERATE PAIN (4-6 PAIN SCALE) 02/22/25 14:15 02/22/25 14:49 Alprazolam (Xanax Tablet) 0.5 mg DAILYPRN PRN PO ANXIETY 02/22/25 14:15 02/22/25 19:49 Enoxaparin Sodium (Lovenox) 40 mg DAILY SC 02/23/25 10:00 Potassium Chloride/Sodium Chloride 1,000 ml @ 100 mls/hr Q10H IV 02/22/25 22:00 02/22/25 22:44 Metronidazole 100 ml @ 100 mls/hr Q8HR IV 02/23/25 14:00 Vital Signs Vital Signs Date Time Temp Pulse Resp B/P (MAP) Pulse Ox O2 Delivery O2 Flow Rate FiO2 02/23/25 09:00 98.1 71 15 131/70 (90) 97 98.1 02/23/25 08:05 Room Air* 0 21 Physical Exam GEN: Age-appropriate female in no acute distress. Alert. HEENT: Normocephalic atraumatic. Moist mucous membranes. Anicteric sclerae. CV: RRR Respiratory: CTAB ABD: Soft. Very minimal diffuse tenderness to palpation without guarding or rebound. Nondistended. CT of the abdomen and pelvis: Terminal ileitis and harley colitis. Mild dilatation of the mural thickening of the appendix. Labs/Diagnostic Data Labs Test 02/23/25 12:07 02/23/25 07:09 02/22/25 13:05 02/22/25 07:19 Range/Units Prothrombin Time 10.9 9.3-11.8 sec Prothrombin Time INR 1.03 0.9-1.15 White Blood Count 3.4 L 4.4-10.8 10^3/uL Red Blood Count 3.11 L 4.0-5.20 10^6/uL Hemoglobin 10.4 L 12.2-16.2 g/dL Hematocrit 29.8 L 36.0-46.0 % Mean Corpuscular Volume 95.9 80.0-100.0 fL Mean Corpuscular Hemoglobin 33.6 H 28.0-32.0 pg Mean Corpuscular Hemoglobin Concent 35.1 32.0-36.0 g/dL Red Cell Distribution Width 15.4 H 11.8-14.3 % Platelet Count 149 140-450 10^3/uL Mean Platelet Volume 7.3 6.9-10.8 fL Neutrophils (%) (Auto) 50.7 37.0-80.0 % Lymphocytes (%) (Auto) 37.4 10.0-50.0 % Monocytes (%) (Auto) 8.5 0.0-12.0 % Eosinophils (%) (Auto) 2.8 0.0-7.0 % Basophils (%) (Auto) 0.6 0.0-2.0 % Neutrophils # (Auto) 1.7 1.6-8.6 10 ^3/uL Lymphocytes # (Auto) 1.3 0.4-5.4 10 ^3/uL Monocytes # (Auto) 0.3 0-1.3 10 ^3/uL Eosinophils # (Auto) 0.1 0-0.8 10 ^3/uL Basophils # (Auto) 0 0-0.2 10 ^3/uL Nucleated Red Blood Cells 0.1 % Sodium Level 143 136-145 mmol/L Potassium Level 3.3 L 3.5-5.1 mmol/L Chloride Level 108 H 98-107 mmol/L Carbon Dioxide Level 25 20-31 mmol/L Anion Gap 10 5-15 Blood Urea Nitrogen < 5 L 9-23 mg/dL Creatinine 0.63 0.550-1.02 mg/dL Glomerular Filtration Rate Calc 109 >90 mL/min BUN/Creatinine Ratio 7.9 L 10.0-20.0 Serum Glucose 86 74-106 mg/dL Calcium Level 8.1 L 8.7-10.4 mg/dL Phosphorus Level 3.7 2.4-5.1 mg/dL Magnesium Level 2.3 1.6-2.6 mg/dL Amylase Level 88 30-118 U/L Lipase 135 H 12-53 U/L Lactic Acid Level 0.7 0.4-2.0 mmol/L Test 02/22/25 04:53 02/22/25 02:15 02/21/25 16:52 02/21/25 15:35 Range/Units Total Bilirubin 0.3 0.2-1.0 mg/dL Aspartate Amino Transferase (AST) 35 13-40 U/L Alanine Aminotransferase (ALT) 17 7-40 U/L Alkaline Phosphatase 88 46-116 U/L C-Reactive Protein High Sensitivity 0.41 <1.0 mg/dL Total Protein 5.8 5.7-8.2 g/dL Albumin 3.7 3.2-4.8 g/dL Triglycerides Level 61 < 150 mg/dL Cholesterol Level 174 < 200 mg/dL LDL Cholesterol 72 < 100 mg/dL HDL Cholesterol 87 H 40-59 mg/dL Beta HCG, Quantitative 0.9 L 1.5-4.2 mIU/mL Stool for White Cells None seen Troponin I High Sensitivity 3 L </=34 ng/L Hemoglobin A1c 4.7 <5.7 % A1C Iron Level 56 50-170 ug/dL Total Iron Binding Capacity 322 250-425 ug/dL Percent Iron Saturation 17.4 15-50 % Ferritin 77.4 10-291 ng/mL Thyroid Stimulating Hormone (TSH) 1.40 0.55-4.78 uIU/mL Plasma/Serum Blood Alcohol < 3.0 <10 mg/dL HIV (1&2) Antibody Negative Negative Test 02/21/25 14:50 Range/Units Urine Color Yellow Yellow Urine Clarity Turbid H Clear Urine pH 6.5 5.0-9.0 Urine Specific [place] 1.028 1.001-1.035 Urine Protein 1+ H Negative Urine Ketones 1+ H Negative Urine Blood 3+ H Negative /uL Urine Nitrite Negative Negative Urine Bilirubin 1+ H Negative Urine Urobilinogen 2 H Negative mg/dL Urine Leukocyte Esterase Trace Negative /uL Urine RBC 25 0 - 4 /hpf Urine Microscopic WBC 14 H 0-5 /HPF Urine Squamous Epithelial Cells Mod <5 /hpf Urine Bacteria None seen None Seen /hpf Urine Mucus Moderate None Seen Urine Glucose Normal Normal mg/dL Urine Opiates Screen Pos NEGATIVE Urine Fentanyl Screen Neg NEGATIVE Urine Barbiturates Screen Neg NEGATIVE Urine Phencyclidine Screen Neg NEGATIVE Urine Amphetamines Screen Neg NEGATIVE Urine Benzodiazepines Screen Pos NEGATIVE Urine Cocaine Screen Neg NEGATIVE Urine Cannabinoids Screen Pos NEGATIVE Microbiology Date/Time Source Procedure Growth Status 02/21/25 14:50 Voided Urine Urine Culture - Preliminary Resulted Assessment 1. Ileitis and pancolitis 2. Appendicitis is very unlikely. Plan/Recommendation 1. No acute indication for surgical intervention at this time. 2. Recommended outpatient colonoscopy. Patient agreed. Plan discussed with: Patient HALINA HOWE MD February 23, 2025 14:02
[2025-02-23] MEDS: ONDANSETRON HCL 4 MG/2 ML VIAL IV PRN (14:46)
[2025-02-23] MEDS: metroNIDAZOLE 500MG/100ML 100 ML IV SCH (14:52)
[2025-02-23] MEDS: POTASSIUM EFFERVESENT TAB 25 MEQ PO ONE (15:38)
--- NOTE | 2025-02-23 19:01 | DVHPN2 ---
Progress Note - Dictate Date Seen: February 23, 2025 Medical Necessity Reason Pt with a Central, PICC or Fol: No Subjective Abdominal pain nausea heartburn etc. still persistent Had a CT scan done with contrast showed some inflammation in the right colon as well as in the possible colitis or appendicitis could not be ruled out vital signs Vital Sign Date Time Temp Pulse Resp B/P (MAP) Pulse Ox O2 Delivery O2 Flow Rate FiO2 02/23/25 17:00 98.4 67 17 128/84 (99) 97 98.4 02/23/25 08:05 Room Air* 0 21 Total Intake and Output 02/22/25 02/22/25 02/23/25 14:59 22:59 06:59 Intake Total 50 ml 2880 ml 700 ml Output Total 600 ml 200 ml Balance 50 ml 2280 ml 500 ml medications Current Medications Medications Dose Ordered Sig/Janae Route Start Time Stop Time Status Last Admin Dose Admin Sodium Chloride 10 ml Q8HR IV 02/21/25 22:00 02/23/25 14:47 10 ML Acetaminophen 650 mg Q6HP PRN PO 02/21/25 22:00 Pantoprazole Sodium 40 mg DAILY IV 02/22/25 10:00 02/23/25 11:25 40 MG Thiamine HCl 100 mg DAILY IV 02/22/25 10:00 02/23/25 11:25 100 MG Ceftriaxone Sodium 50 ml @ 100 mls/hr DAILY@09 IV 02/22/25 09:00 02/23/25 11:30 100 MLS/HR Folic Acid 1 mg DAILY PO 02/22/25 10:00 02/23/25 11:28 1 MG Ondansetron HCl 4 mg Q6HPRN PRN IV 02/22/25 18:00 02/23/25 14:46 4 MG Sucralfate 1 gm TID@0600,1130,2200 PO 02/22/25 22:00 02/23/25 11:30 1 GM Acetaminophen/ Hydrocodone Bitart 1 tab Q6HPRN PRN PO 02/22/25 14:15 02/23/25 14:50 1 TAB Alprazolam 0.5 mg DAILYPRN PRN PO 02/22/25 14:15 02/22/25 19:49 0.5 MG Enoxaparin Sodium 40 mg DAILY SC 02/23/25 10:00 Potassium Chloride/Sodium Chloride 1,000 ml @ 100 mls/hr Q10H IV 02/22/25 22:00 02/22/25 22:44 100 MLS/HR Metronidazole 100 ml @ 100 mls/hr Q8HR IV 02/23/25 14:00 02/23/25 14:52 100 MLS/HR objective Abdomen is soft nontender no masses bowel sounds normal laboratory and microbiology Laboratory Tests 02/23/25 07:09 Test 02/23/25 07:09 Range/Units Serum Glucose 86 74-106 mg/dL Assessment/Plan 41-year-old female with a history of arthritis fibromyalgia and GERD admitted with complaints of abdominal pain nausea vomiting some diarrhea We will recommend Ultrasound of the appendix Stool studies If symptoms persist may need endoscopic evaluation of the stomach as well as the colon is difficult to see about the upper GI tract because of the fact that it was done any done with IV contrasts will recommend EGD colon if symptoms persist Thank you Dr. Mixon Plan discussed with: Patient UMU MIXON MD February 23, 2025 19:01
--- NOTE | 2025-02-23 21:58 | DVH ---
Exam: US RIGHT LOWER QUAD Date: 02/23/2025 08:54 PM Clinical History: Abdomen Comparison: US ABDOMEN LIMITED on DOS: 02/22/25 Technique: Targeted sonographic evaluation of the soft tissues of the appendix was obtained utilizing grayscale and color Doppler imaging. Findings: There is no evidence for drainable collection. There is no evidence for solid or cystic mass in the site. No vascular abnormalities identified at this site. There was a noncompressible tubular struc ture in the right lower quadrant measuring 6.8 mm. It was able to be compressed to 6.3 mm. IMPRESSION: 1. Noncompressible tubular structure right lower quadrant was compressed to 6.3 mm. No other findings to suggest appendicitis were noted.
[2025-02-24 05:00] VITALS: BP 123/82; PULSE 59; RESP 18; TEMP 97.6; O2SAT 99
[2025-02-24 06:25] LABS: Basophils # (auto) 0 10 ^3/uL (0-0.2); Basophils % (auto) 0.6 % (0.0-2.0); Eosinophils # (auto) 0.1 10 ^3/uL (0-0.8); Eosinophils % (auto) 3.1 % (0.0-7.0); Hematocrit 33.9 % (36.0-46.0); Hemoglobin 11.5 g/dL (12.2-16.2); Lymphocytes # (auto) 1.5 10 ^3/uL (0.4-5.4); Mean Corpuscular Hemoglobin 32.9 pg (28.0-32.0); Mean Corpuscular Volume 96.8 fL (80.0-100.0); Monocytes # (auto) 0.4 10 ^3/uL (0-1.3); Neutrophils # (auto) 1.6 10 ^3/uL (1.6-8.6); Neutrophils % (auto) 45.3 % (37.0-80.0); Nucleated Red Blood Cells % 0.3 %; Platelet Count (auto) 197 10^3/uL (140-450); Red Cell Distribution Width 14.9 % (11.8-14.3); White Blood Cell 3.6 10^3/uL (4.4-10.8)
[2025-02-24 06:51] LABS: Alanine Aminotransferase 25 U/L (7-40); Albumin 3.9 g/dL (3.2-4.8); Alkaline Phosphatase 83 U/L (46-116); Anion Gap 10 (5-15); Aspartate Aminotransferase 33 U/L (13-40); Calcium 9.4 mg/dL (8.7-10.4); Carbon Dioxide 27 mmol/L (20-31); Chloride 105 mmol/L (98-107); Glucose 78 mg/dL (74-106); Potassium 3.7 mmol/L (3.5-5.1); Sodium 142 mmol/L (136-145)
[2025-02-24 07:04] LABS: BUN/Creatinine Ratio 6.5 (10.0-20.0); Blood Urea Nitrogen < 5 mg/dL (9-23)
[2025-02-24 07:34] LABS: Erythrocyte Sedimentation Rate 7 mm/hr (0-20)
[2025-02-24 08:21] LABS: Bilirubin, Total 0.2 mg/dL (0.2-1.0)
[2025-02-24 08:36] VITALS: BP 135/88; PULSE 81; RESP 18; TEMP 97.9; O2SAT 96
[2025-02-24 09:32] LABS: Lipase 124 U/L (12-53)
[2025-02-24 11:01] LABS: Hepatitis B Surface Antigen Negative (Negative); Hepatitis C Antibody Negative (Negative)
[2025-02-24] MEDS: ACETAMINOPHEN 325 MG TAB PO PRN (12:08)
[2025-02-24 12:35] VITALS: BP 129/87; PULSE 60; RESP 18; TEMP 97.8; O2SAT 96
[2025-02-24] MEDS: GOLYTELY 4L KIT PO ONE (12:45)
[2025-02-24 16:37] VITALS: BP 122/87; PULSE 76; RESP 18; TEMP 98.1; O2SAT 98
--- NOTE | 2025-02-24 16:39 | DVHPNRES ---
Progress Note Date Seen: February 24, 2025 Resident Creating Document: SERINA GUILLEN RESIDENT Medical Necessity Reason Pt with a Central, PICC or Fol: No Subjective Review of Systems Patient seen and examined at the bedside Reports of diffuse abdominal pain and nausea but no vomiting mutliplpe episodes of loose bowel movement, no blood per rectum Denies any fever, chills Objective vital signs Vital Sign Date Time Temp Pulse Resp B/P (MAP) Pulse Ox O2 Delivery O2 Flow Rate FiO2 02/24/25 12:35 97.8 60 18 129/87 (101) 96 97.8 02/24/25 08:05 Room Air* 0 21 Total Intake and Output 02/23/25 02/23/25 02/24/25 15:00 23:00 07:00 Intake Total 50 ml 1150 ml 820 ml Balance 50 ml 1150 ml 820 ml medications Current Medications Medications Dose Ordered Sig/Janae Route Start Time Stop Time Status Last Admin Dose Admin Sodium Chloride 10 ml Q8HR IV 02/21/25 22:00 02/24/25 06:02 10 ML Acetaminophen 650 mg Q6HP PRN PO 02/21/25 22:00 02/24/25 12:08 650 MG Pantoprazole Sodium 40 mg DAILY IV 02/22/25 10:00 02/24/25 09:39 40 MG Thiamine HCl 100 mg DAILY IV 02/22/25 10:00 02/24/25 09:37 100 MG Ceftriaxone Sodium 50 ml @ 100 mls/hr DAILY@09 IV 02/22/25 09:00 02/24/25 09:45 100 MLS/HR Folic Acid 1 mg DAILY PO 02/22/25 10:00 02/24/25 09:42 1 MG Ondansetron HCl 4 mg Q6HPRN PRN IV 02/22/25 18:00 02/23/25 14:46 4 MG Sucralfate 1 gm TID@0600,1130,2200 PO 02/22/25 22:00 02/24/25 12:07 1 GM Acetaminophen/ Hydrocodone Bitart 1 tab Q6HPRN PRN PO 02/22/25 14:15 02/23/25 22:15 1 TAB Alprazolam 0.5 mg DAILYPRN PRN PO 02/22/25 14:15 02/24/25 12:42 0.5 MG Enoxaparin Sodium 40 mg DAILY SC 02/23/25 10:00 Potassium Chloride/Sodium Chloride 1,000 ml @ 100 mls/hr Q10H IV 02/22/25 22:00 02/24/25 04:00 100 MLS/HR Metronidazole 100 ml @ 100 mls/hr Q8HR IV 02/23/25 14:00 02/24/25 05:59 100 MLS/HR Examination Constitutional: Patient is alert and oriented to time, place and person does not appear to be any acute distress Gen - no pallor, no icterus, no cyanosis, no clubbing, no LAD, no edema . Skin - Patients skin is warm and dry. HEENT - normocephalic, atraumatic, moist mucous membranes. Neck - full ROM, no LAD, no JVD Pulmonary - B/L equal breath sounds. no crackles , no wheezing, no stridor. cardiovascular - regular S1,S2 heard. no murmurs heard. GI - soft, diffusely tender abdomen. no hepatospleenomegaly. Bowel sounds normoactive Neurological - Patient is A/O X 3 . Bilateral upper extremity strength 5/5, bilateral lower extremity strength 5/5, no facial droop, normal speech, no tremor, no sensory deficiets. laboratory and microbiology Laboratory Tests 02/24/25 05:04 Test 02/24/25 05:04 Range/Units Serum Glucose 78 74-106 mg/dL Microbiology Date/Time Source Procedure Growth Status 02/21/25 14:50 Voided Urine Urine Culture - Final Complete Problem List/Assessment/Plan Problem List/Assessment/Plan Intractable abdominal pain and nausea Acute pancreatitis less likely Acute on chronic gastroduodenitis ?Constipation GERD - CT abdomen pelvis shows mild wall thickening of the distal esophagus, distal stomach and proximal small will which may represent esophagitis and gastroenteritis - right upper quadrant ultrasound shows fatty infiltration of the liver, normal gallbladder and bile duct - IV Protonix - sucralfate p.o. - ceftriaxone 1 g daily - IV fluids - clear liquid diet - lactulose p.r.n. - CT abdomen pelvis with IV and oral contrast showed Terminal ileitis and pancolitis that could be infectious or inflammatory in nature. In addition, there is mild dilatation mural thickening of the appendix that could be related to the underlying enterocolitis or reflect developing appendicitis. - appendix ultrasound showed Noncompressible tubular structure right lower quadrant was compressed to 6.3 mm. No other findings to suggest appendicitis were noted. - gastroenterology recomended colonoscopy and upper EGD tomorrow Alcohol use disorder CIWA score less than 8, no alcohol withdrawal Generalized anxiety disorder Major depressive disorder - no suicidal/homicidal ideation - alprazolam 0.5 mg prn - thiamine 100 mg IV - folic acid Hypokalemia - replenished DVT prophylaxis: Enoxaparin PUD prophylaxis: Protonix Goals of care discussed with the patient for over 31 minutes. Full code Plan discussed with Dr. Elliott Plan discussed with: Patient My Orders My Orders Orders - SERINA GUILLEN Procedure Category Date Status Time Npo (Nothing By DIET 02/25/25 Transmitted Mouth) Diet Breakfast Date of Service: February 24, 2025 Billing Provider: DEVIN ELLIOTT MD Common Visit Codes: [id number] INP/OBS CARE(HIGH) SERINA GUILLEN RESIDENT February 24, 2025 16:39 DEVIN ELLIOTT MD February 25, 2025 12:49
[2025-02-24 20:00] VITALS: PULSE 89; RESP 17; O2SAT 99
--- NOTE | 2025-02-24 20:43 | DVHPN2 ---
Progress Note - Dictate Date Seen: February 24, 2025 Medical Necessity Reason Pt with a Central, PICC or Fol: No Subjective Abdominal pain nausea heartburn etc. still persistent Had a CT scan done with contrast showed some inflammation in the right colon as well as in the possible colitis or appendicitis could not be ruled out Ultrasound of the appendix did not show any gross problems Patient has complaints of abdominal pain diarrhea nausea heartburn vital signs Vital Sign Date Time Temp Pulse Resp B/P (MAP) Pulse Ox O2 Delivery O2 Flow Rate FiO2 02/24/25 16:37 98.1 76 18 122/87 (99) 98 98.1 02/24/25 08:05 Room Air* 0 21 Total Intake and Output 02/23/25 02/23/25 02/24/25 15:00 23:00 07:00 Intake Total 50 ml 1150 ml 820 ml Balance 50 ml 1150 ml 820 ml medications Current Medications Medications Dose Ordered Sig/Janae Route Start Time Stop Time Status Last Admin Dose Admin Sodium Chloride 10 ml Q8HR IV 02/21/25 22:00 02/24/25 16:45 10 ML Acetaminophen 650 mg Q6HP PRN PO 02/21/25 22:00 02/24/25 12:08 650 MG Pantoprazole Sodium 40 mg DAILY IV 02/22/25 10:00 02/24/25 09:39 40 MG Thiamine HCl 100 mg DAILY IV 02/22/25 10:00 02/24/25 09:37 100 MG Ceftriaxone Sodium 50 ml @ 100 mls/hr DAILY@09 IV 02/22/25 09:00 02/24/25 09:45 100 MLS/HR Folic Acid 1 mg DAILY PO 02/22/25 10:00 02/24/25 09:42 1 MG Ondansetron HCl 4 mg Q6HPRN PRN IV 02/22/25 18:00 02/23/25 14:46 4 MG Sucralfate 1 gm TID@0600,1130,2200 PO 02/22/25 22:00 02/24/25 12:07 1 GM Acetaminophen/ Hydrocodone Bitart 1 tab Q6HPRN PRN PO 02/22/25 14:15 02/24/25 16:53 1 TAB Alprazolam 0.5 mg DAILYPRN PRN PO 02/22/25 14:15 02/24/25 12:42 0.5 MG Enoxaparin Sodium 40 mg DAILY SC 02/23/25 10:00 Potassium Chloride/Sodium Chloride 1,000 ml @ 100 mls/hr Q10H IV 02/22/25 22:00 02/24/25 16:45 100 MLS/HR Metronidazole 100 ml @ 100 mls/hr Q8HR IV 02/23/25 14:00 02/24/25 16:38 100 MLS/HR objective Abdomen is soft nontender no masses bowel sounds normal Ultrasound of the abdomen for the appendix was unremarkable laboratory and microbiology Laboratory Tests 02/24/25 05:04 Test 02/24/25 05:04 Range/Units Serum Glucose 78 74-106 mg/dL Assessment/Plan 41-year-old female with a history of arthritis fibromyalgia and GERD admitted with complaints of abdominal pain nausea vomiting some diarrhea abnormal CAT scan with inflammation of the stomach duodenum esophagus as well as the colon Ultrasound of the appendix unremarkable Stool studies negative will recommend EGD colon since symptoms persistent Thank you Dr. Mixon Plan discussed with: Patient UMU MIXON MD February 24, 2025 20:43
[2025-02-24 21:00] VITALS: BP 134/78; PULSE 89; RESP 17; TEMP 98; O2SAT 99
[2025-02-25] VITALS (7 sets, daily range): BP systolic 91–121; BP diastolic 53–71; PULSE 57–90; RESP 14–20; TEMP 98–98.2; O2SAT 95–100
[2025-02-25 06:55] LABS: Basophils # (auto) 0 10 ^3/uL (0-0.2); Basophils % (auto) 0.8 % (0.0-2.0); Eosinophils # (auto) 0.1 10 ^3/uL (0-0.8); Eosinophils % (auto) 3.7 % (0.0-7.0); Hematocrit 32.6 % (36.0-46.0); Hemoglobin 11.3 g/dL (12.2-16.2); Lymphocytes # (auto) 1.4 10 ^3/uL (0.4-5.4); Lymphocytes % (auto) 40.7 % (10.0-50.0); Mean Corpuscular Hgb Conc. 34.5 g/dL (32.0-36.0); Mean Corpuscular Volume 95.5 fL (80.0-100.0); Monocytes # (auto) 0.4 10 ^3/uL (0-1.3); Monocytes % (auto) 11.3 % (0.0-12.0); Neutrophils # (auto) 1.5 10 ^3/uL (1.6-8.6); Neutrophils % (auto) 43.5 % (37.0-80.0); Platelet Count (auto) 207 10^3/uL (140-450); Red Blood Cells 3.41 10^6/uL (4.0-5.20); Red Cell Distribution Width 15.6 % (11.8-14.3); White Blood Cell 3.4 10^3/uL (4.4-10.8)
[2025-02-25 07:03] LABS: Chloride 105 mmol/L (98-107); Potassium 3.6 mmol/L (3.5-5.1); Sodium 141 mmol/L (136-145)
[2025-02-25 07:04] LABS: Anion Gap 10 (5-15); Carbon Dioxide 26 mmol/L (20-31)
[2025-02-25 07:09] LABS: Glucose 78 mg/dL (74-106)
[2025-02-25 07:10] LABS: BUN/Creatinine Ratio 6.9 (10.0-20.0); Blood Urea Nitrogen < 5 mg/dL (9-23); Calcium 8.5 mg/dL (8.7-10.4)
[2025-02-25] MEDS ORDERED: FLUMAZENIL 0.1 MG/ML INJ 10ML MDV IV ONE (08:28)
[2025-02-25] MEDS ORDERED: NALOXONE HCL 0.4 MG/ML VIAL ONE (08:28)
[2025-02-25] MEDS ORDERED: SODIUM CHLORIDE LOCK 10 ML ONE (08:28)
[2025-02-25] MEDS ORDERED: SIMETHICONE 40 MG/0.6 ML ORAL DROP ONE (08:29)
[2025-02-25] MEDS: LIDOCAINE VISCOUS 2% 15ML UD ONE (08:37)
[2025-02-25] MEDS: MIDAZOLAM HCL 5 MG/ML-1ML VIAL ONE ×2 (08:42→09:06)
[2025-02-25] MEDS: fentaNYL CITRATE 100 MCG/2 ML VL ONE ×2 (08:42→08:58)
[2025-02-25] MEDS: diphenhdrAMINE HCL 50 MG/1 ML VL ONE (08:45)
--- NOTE | 2025-02-25 09:35 | DVHOP2 ---
Operative Report DATE OF PROCEDURE: 02/25/25 INDICATIONS FOR THE PROCEDURE: Abdominal pain nausea anorexia abnormal CAT scan possible gastritis esophagitis or ulcer PROCEDURE PERFORMED: 1. Esophagogastroduodenoscopy biopsy by cold biopsy forceps POSTOPERATIVE DIAGNOSIS: Small hiatal hernia Mild esophagitis LA classification B Antral gastritis INFORMED CONSENT: The risks and benefits and alternatives were explained to the patient and informed consent was obtained. PROCEDURE IN DETAIL: The patient was kept NPO after midnight. In the endoscopy room, she was given IV fentanyl 125 mcg and Versed 6 mg, titrated slowly to get her sedated. Olympus gastroscope was passed through the oropharynx into the stomach and the duodenum, and the findings were as follows. Esophagus: 1 cm Hhiatal hernia Mild Esophagitis classification B No Esophageal ulcer No Esophageal stricture Stomach: Fundus: Retroflexed and visualized normal Body and antrum Mild erythematous streaks suggestive of mild gastritis biopsies taken with cold biopsy forceps to ensure there is no H pylori or other pathology Pylorus normal Duodenum Unremarkable, biopsies taken to ensure there is no celiac disease or other pathology Endoscopic impression Mild esophagitis LA classification B Antral gastritis No ulcers no mass lesion Suggestions Await the biopsy results Treat with PPIs Carafate and dicyclomine If Symptoms persist may need further evaluation as necessary Thank you for asking me to take part in the care of this pleasant patient UMU Jiménez MD February 25, 2025 09:35
--- NOTE | 2025-02-25 09:44 | DVHOP2 ---
Operative Report DATE OF PROCEDURE: 02/25/25 INDICATIONS FOR THE PROCEDURE: Abdominal pain occasional diarrhea abnormal CAT scan circumferential thickening of the ileum and the colon on the CAT scan PROCEDURE PERFORMED: Colonoscopy and biopsy by cold biopsy forceps Colonoscopy and polypectomy of the rectal polyp by cold biopsy forceps POSTOPERATIVE DIAGNOSIS: Small rectal polyp removed by cold biopsy forceps Mild nonspecific sigmoiditis biopsies taken Essential looking normal terminal ileum but biopsies taken because of the abnormal CAT scan to ensure there is no occult colitis though endoscopically mucosa looks benign without any evidence of any inflammation Small rectal polyp in the mid rectum removed by cold biopsy forceps completely Small internal hemorrhoids INFORMED CONSENT: The risks and benefits and alternatives were explained to the patient and informed consent was obtained. PROCEDURE IN DETAIL: The patient was kept NPO after midnight. Sedation was given with Versed 6 mg fentanyl 125 mcg and Benadryl 50 mg titrated slowly to get her sedated Olympus c olonoscope was passed through the rectum all the way up to cecum. The terminal ileum Cecum, ascending colon, hepatic flexure, transverse colon, splenic flexure, descending colon, and sigmoid colon were all visualized and the findings were as follows: Findings: The terminal ileum was normal biopsies taken with cold biopsy forceps to ensure there is no occult inflammatory bowel disease though mucosa looked completely benign without any evidence of any IBD Mild nonspecific sigmoiditis biopsies taken to ensure there is no occult inflammatory bowel disease or occult colitis likely lymphocytic colitis Small rectal polyp 5 mm in the mid rectum removed by cold biopsy forceps completely Internal hemorrhoids Patient tolerated the procedure extremely well postop vitals stable ENDOSCOPIC IMPRESSION: Mild nonspecific sigmoiditis biopsies taken Essential looking normal terminal ileum but biopsies taken because of the abnormal CAT scan to ensure there is no occult colitis though endoscopically mucosa looks benign without any evidence of any inflammation Small rectal polyp in the mid rectum removed by cold biopsy forceps completely Small internal hemorrhoids SUGGESTIONS: Await the biopsy results Symptomatic treatment Thank you UMU Jiménez MD February 25, 2025 09:43
[2025-02-25] MEDS ORDERED: DICY10CA PO (12:33)
[2025-02-25] MEDS ORDERED: PANT40TA2 PO (12:33)
[2025-02-25] MEDS ORDERED: SUCR1SUS5 PO (12:33)
[2025-02-25] MEDS: FLUCONAZOLE 100 MG TAB PO ONE (14:51)
--- NOTE | 2025-02-25 21:22 | DVHDSRES ---
Discharge Summary Date of Admission Resident Creating Document: SERINA GUILLEN RESIDENT February 21, 2025 at 21:48 Date of Discharge: February 25, 2025 Admitting Diagnosis Intractable nausea and vomiting and abdominal pain likely due to acute pancreatitis/acute gastroduodenitis Acute pancreatitis Intractable nausea and vomiting likely cannabis induced hyperemesis Hypokalemia UTI rheumatoid arthritis arthritis fibromyalgia history of gastritis anxiety GERD Wounds: none Labs/Diagnostic Data: Laboratory Results Test 02/25/25 06:06 02/24/25 05:04 02/23/25 12:07 02/23/25 07:09 White Blood Count 3.4 10^3/uL (4.4-10.8) Red Blood Count 3.41 10^6/uL (4.0-5.20) Hemoglobin 11.3 g/dL (12.2-16.2) Hematocrit 32.6 % (36.0-46.0) Mean Corpuscular Volume 95.5 fL (80.0-100.0) Mean Corpuscular Hemoglobin 33.0 pg (28.0-32.0) Mean Corpuscular Hemoglobin Concent 34.5 g/dL (32.0-36.0) Red Cell Distribution Width 15.6 % (11.8-14.3) Platelet Count 207 10^3/uL (140-450) Mean Platelet Volume 7.3 fL (6.9-10.8) Neutrophils (%) (Auto) 43.5 % (37.0-80.0) Lymphocytes (%) (Auto) 40.7 % (10.0-50.0) Monocytes (%) (Auto) 11.3 % (0.0-12.0) Eosinophils (%) (Auto) 3.7 % (0.0-7.0) Basophils (%) (Auto) 0.8 % (0.0-2.0) Neutrophils # (Auto) 1.5 10 ^3/uL (1.6-8.6) Lymphocytes # (Auto) 1.4 10 ^3/uL (0.4-5.4) Monocytes # (Auto) 0.4 10 ^3/uL (0-1.3) Eosinophils # (Auto) 0.1 10 ^3/uL (0-0.8) Basophils # (Auto) 0 10 ^3/uL (0-0.2) Nucleated Red Blood Cells 0.0 % Sodium Level 141 mmol/L (136-145) Potassium Level 3.6 mmol/L (3.5-5.1) Chloride Level 105 mmol/L (98-107) Carbon Dioxide Level 26 mmol/L (20-31) Anion Gap 10 (5-15) Blood Urea Nitrogen < 5 mg/dL (9-23) Creatinine 0.72 mg/dL (0.550-1.02) Glomerular Filtration Rate Calc 103 mL/min (>90) BUN/Creatinine Ratio 6.9 (10.0-20.0) Serum Glucose 78 mg/dL (74-106) Calcium Level 8.5 mg/dL (8.7-10.4) Erythrocyte Sedimentation Rate 7 mm/hr (0-20) Total Bilirubin 0.2 mg/dL (0.2-1.0) Aspartate Amino Transferase (AST) 33 U/L (13-40) Alanine Aminotransferase (ALT) 25 U/L (7-40) Alkaline Phosphatase 83 U/L (46-116) Total Protein 6.0 g/dL (5.7-8.2) Albumin 3.9 g/dL (3.2-4.8) Lipase 124 U/L (12-53) Prothrombin Time 10.9 sec (9.3-11.8) Prothrombin Time INR 1.03 (0.9-1.15) Phosphorus Level 3.7 mg/dL (2.4-5.1) Magnesium Level 2.3 mg/dL (1.6-2.6) Amylase Level 88 U/L (30-118) Test 02/22/25 13:05 02/22/25 07:19 02/22/25 04:53 02/22/25 02:15 Tissue Transglutaminase IgA Ab <2 U/mL (0-3) Lactic Acid Level 0.7 mmol/L (0.4-2.0) C-Reactive Protein High Sensitivity 0.41 mg/dL (<1.0) Triglycerides Level 61 mg/dL (< 150) Cholesterol Level 174 mg/dL (< 200) LDL Cholesterol 72 mg/dL (< 100) HDL Cholesterol 87 mg/dL (40-59) Beta HCG, Quantitative 0.9 mIU/mL (1.5-4.2) Hepatitis B Surface Antigen Negative (Negative) Hepatitis C Antibody Negative (Negative) Stool for White Cells None seen Test 02/21/25 16:52 02/21/25 15:35 02/21/25 14:50 Troponin I High Sensitivity 3 ng/L (</=34) Hemoglobin A1c 4.7 % A1C (<5.7) Iron Level 56 ug/dL (50-170) Total Iron Binding Capacity 322 ug/dL (250-425) Percent Iron Saturation 17.4 % (15-50) Ferritin 77.4 ng/mL (10-291) Thyroid Stimulating Hormone (TSH) 1.40 uIU/mL (0.55-4.78) Plasma/Serum Blood Alcohol < 3.0 mg/dL (<10) HIV (1&2) Antibody Negative (Negative) Urine Color Yellow (Yellow) Urine Clarity Turbid (Clear) Urine pH 6.5 (5.0-9.0) Urine Specific [place] 1.028 (1.001-1.035) Urine Protein 1+ (Negative) Urine Ketones 1+ (Negative) Urine Blood 3+ /uL (Negative) Urine Nitrite Negative (Negative) Urine Bilirubin 1+ (Negative) Urine Urobilinogen 2 mg/dL (Negative) Urine Leukocyte Esterase Trace /uL (Negative) Urine RBC 25 /hpf (0 - 4) Urine Microscopic WBC 14 /HPF (0-5) Urine Squamous Epithelial Cells Mod /hpf (<5) Urine Bacteria None seen /hpf (None Seen) Urine Mucus Moderate (None Seen) Urine Glucose Normal mg/dL (Normal) Urine Opiates Screen Pos (NEGATIVE) Urine Fentanyl Screen Neg (NEGATIVE) Urine Barbiturates Screen Neg (NEGATIVE) Urine Phencyclidine Screen Neg (NEGATIVE) Urine Amphetamines Screen Neg (NEGATIVE) Urine Benzodiazepines Screen Pos (NEGATIVE) Urine Cocaine Screen Neg (NEGATIVE) Urine Cannabinoids Screen Pos (NEGATIVE) Other Laboratory Tests 02/25/25 06:06 Brief Hx & Hospital Course: Patient is a 49-year-old female with a past medical history of rheumatoid arthritis, fibromyalgia, history of gastritis, GERD, anxiety, substance use and alcohol use disorder presented to the ED with a chief complaint of worsening abdominal pain for the last 2 weeks. Patient reports that earlier this year in October she started to have worsening abdominal pain associated with the symptoms of indigestion, intractable nausea and loose stools. Patient reported that she has been drinking alcohol about 2-3 large drinks every day, smokes cigarettes and vapes. In November she underwent a upper EGD at [place] where she was told about having gastritis and was started on Protonix which according to the patient gives her some relief. Patient continues to smoke and drink alcohol. Patient denied any hematemesis or melena, weight loss, night sweats. Patient also reported of dysuria and has been treated for UTI in the last couple of months for 3 times. Past medical history: As per HPI Past surgical history: Breast implant, Social history: Patient is a current smoker half pack per day, drinks alcohol 3 drinks per day, substance use Home medications: Protonix 40 mg, simethicone, venlafaxine 37.5, bupropion 15 mg b.i.d., alprazolam 1 mg Brief hospital course Patient came in with a chief complaint of worsening abdominal pain associated with the symptoms of indigestion, heartburn and also diarrhea. On initial labs, patient had elevated lipase level following which CT abdomen pelvis was done which did not show any evidence of acute pancreatitis but it reported mild wall thickening of the distal esophagus, stomach and paroxysmal bowel representing esophagitis and gastroenteritis following which CT abdomen pelvis with IV contrast was done which showed terminal ileitis and pancolitis which could be infectious and inflammatory in nature. Gastroenterology were consulted recommended the patient to undergo upper EGD and colonoscopy for which the patient consented. Patient was started on Protonix and sucralfate and was given cleared liquid diet. After appropriate bowel prep patient underwent EGD and colonoscopy which showed hiatal hernia, mild esophagitis, antral gastritis and small rectal polyp, nonspecific mild sigmoiditis respectively, biopsies were taken from both procedures. Patient was started on mechanical soft diet which she tolerated well. Patient discharged in stable condition to home Discharge plan Follow up in the GI outpatient clinic with Dr. Mixon in 4-6 weeks results of biopsies Diet: Advised to continue regular diet and avoid spicy foods Medications: Protonix 40 mg daily, Carafate b.i.d., dicyclomine as needed Patient was advised to strictly avoid alcohol, smoking, vaping and any other drug use, avoid caffeine Consults/Reason for consult GI consultation for symptoms of dyspepsia and diarrhea Operations or Procedures Operative Report DATE OF PROCEDURE: 02/25/25 INDICATIONS FOR THE PROCEDURE: Abdominal pain nausea anorexia abnormal CAT scan possible gastritis esophagitis or ulcer PROCEDURE PERFORMED: 1. Esophagogastroduodenoscopy biopsy by cold biopsy forceps POSTOPERATIVE DIAGNOSIS: Small hiatal hernia Mild esophagitis LA classification B Antral gastritis INFORMED CONSENT: The risks and benefits and alternatives were explained to the patient and informed consent was obtained. PROCEDURE IN DETAIL: The patient was kept NPO after midnight. In the endoscopy room, she was given IV fentanyl 125 mcg and Versed 6 mg, titrated slowly to get her sedated. Olympus gastroscope was passed through the oropharynx into the stomach and the duodenum, and the findings were as follows. Esophagus: 1 cm Hhiatal hernia Mild Esophagitis classification B No Esophageal ulcer No Esophageal stricture Stomach: Fundus: Retroflexed and visualized normal Body and antrum Mild erythematous streaks suggestive of mild gastritis biopsies taken with cold biopsy forceps to ensure there is no H pylori or other pathology Pylorus normal Duodenum Unremarkable, biopsies taken to ensure there is no celiac disease or other pathology Endoscopic impression Mild esophagitis LA classification B Antral gastritis No ulcers no mass lesion Suggestions Await the biopsy results Treat with PPIs Carafate and dicyclomine If Symptoms persist may need further evaluation as necessary Thank you for asking me to take part in the care of this pleasant patient UMU Jiménez MD February 25, 2025 09:35 Operative Report DATE OF PROCEDURE: 02/25/25 INDICATIONS FOR THE PROCEDURE: Abdominal pain occasional diarrhea abnormal CAT scan circumferential thickening of the ileum and the colon on the CAT scan PROCEDURE PERFORMED: Colonoscopy and biopsy by cold biopsy forceps Colonoscopy and polypectomy of the rectal polyp by cold biopsy forceps POSTOPERATIVE DIAGNOSIS: Small rectal polyp removed by cold biopsy forceps Mild nonspecific sigmoiditis biopsies taken Essential looking normal terminal ileum but biopsies taken because of the abnormal CAT scan to ensure there is no occult colitis though endoscopically mucosa looks benign without any evidence of any inflammation Small rectal polyp in the mid rectum removed by cold biopsy forceps completely Small internal hemorrhoids INFORMED CONSENT: The risks and benefits and alternatives were explained to the patient and informed consent was obtained. PROCEDURE IN DETAIL: The patient was kept NPO after midnight. Sedation was given with Versed 6 mg fentanyl 125 mcg and Benadryl 50 mg titrated slowly to get her sedated Olympus colonoscope was passed through the rectum all the way up to cecum. The terminal ileum Cecum, ascending colon, hepatic flexure, transverse colon, splenic flexure, descending colon, and sigmoid colon were all visualized and the findings were as follows: Findings: The terminal ileum was normal biopsies taken with cold biopsy forceps to ensure there is no occult inflammatory bowel disease though mucosa looked completely benign without any evidence of any IBD Mild nonspecific sigmoiditis biopsies taken to ensure there is no occult inflammatory bowel disease or occult colitis likely lymphocytic colitis Small rectal polyp 5 mm in the mid rectum removed by cold biopsy forceps completely Internal hemorrhoids Patient tolerated the procedure extremely well postop vitals stable ENDOSCOPIC IMPRESSION: Mild nonspecific sigmoiditis biopsies taken Essential looking normal terminal ileum but biopsies taken because of the abnormal CAT scan to ensure there is no occult colitis though endoscopically mucosa looks benign without any evidence of any inflammation Small rectal polyp in the mid rectum removed by cold biopsy forceps completely Small internal hemorrhoids SUGGESTIONS: Await the biopsy results Symptomatic treatment Thank you UMU Jiménez MD February 25, 2025 09:43 Condition at Discharge: Good Final Diagnosis/Problems List Intractable abdominal pain and nausea Acute pancreatitis less likely Small hiatal hernia Antral Gastritis Mild esophagitis LA classification B GERD Small rectal polyp Mild nonspecific sigmoiditis Small internal hemorrhoids Alcohol use disorder CIWA score less than 8, no alcohol withdrawal Generalized anxiety disorder Major depressive disorder Hypokalemia Discharge Disposition: Home Discharge Instruct/Medications Diet: Regular Diet comment: Strictly avoid NSAIDS, ALCOHOL, SMOKING, SPICY FOODS Activity: No Restrictions, As Tolerated Follow Up/Referral: Follow up in the discharge clinic in 1 week and in the GI outpatient clinic with Dr. Mixon in 4 weeks to review the results of the Colon and upper EGD biopsies Medications: as per EMR Discharge Statement: "Patient was advised to return to the ER or call 911 if any headaches, dizziness, shortness of breath, chest pain, abdominal pain, bleeding, fevers, or worsening of medical condition. Patient was counseled about treatment plan, medications, possible side effects, patientverbalized understanding. All questions were answered to the best of my ability. This discharge took greater then 30 minutes in planning, reviewing documentation, counseling the patient, and discussing with other team members." ASSESSMENT ASSESSMENT Assessment Intractable abdominal pain and nausea Acute pancreatitis less likely Small hiatal hernia Antral Gastritis Mild esophagitis LA classification B GERD Small rectal polyp Mild nonspecific sigmoiditis Small internal hemorrhoids Alcohol use disorder CIWA score less than 8, no alcohol withdrawal Generalized anxiety disorder Major depressive disorder Hypokalemia Date of Service: February 25, 2025 Billing Provider: DEVIN ELLIOTT MD Common Visit Codes: 61107-DFP/OBS DISCH DAY >30min SERINA GUILLEN RESIDENT February 25, 2025 21:22 DEVIN ELLIOTT MD February 25, 2025 22:29
[2025-02-26] MEDS ORDERED: THIAMINE HCL 100 MG TAB PO SCH (10:00)
== END 2025-02-25 18:04 | disposition home or self-care (01) | DRG 241 ==
LOC: ER 14:39 → EDBD 14:39 → OVERFLOW 21:48 → CENTRAL 23:30
PROVIDERS: ADMIT Student in an Organized Health Care Education/Training Program; ATTEND Emergency Medicine
PROC: 0DBN8ZX Excision of Sigmoid Colon, Via Natural or Artificial Opening Endoscopic, Diagnostic (ICD-10-PCS; 2025-02-25)
PROC: 0DBP8ZX Excision of Rectum, Via Natural or Artificial Opening Endoscopic, Diagnostic (ICD-10-PCS; 2025-02-25)
PROC: 0DB98ZX Excision of Duodenum, Via Natural or Artificial Opening Endoscopic, Diagnostic (ICD-10-PCS; 2025-02-25)
PROC: 0DB58ZX Excision of Esophagus, Via Natural or Artificial Opening Endoscopic, Diagnostic (ICD-10-PCS; 2025-02-25)
PROC: 0DB68ZX Excision of Stomach, Via Natural or Artificial Opening Endoscopic, Diagnostic (ICD-10-PCS; principal; 2025-02-25 08:30)
PROC: 0DBB8ZX Excision of Ileum, Via Natural or Artificial Opening Endoscopic, Diagnostic (ICD-10-PCS; 2025-02-25 08:30)
DX: K29.70 Gastritis, unspecified, without bleeding (principal); D64.9 Anemia, unspecified; K20.90 Esophagitis, unspecified without bleeding; N39.0 Urinary tract infection, site not specified; K52.9 Noninfective gastroenteritis and colitis, unspecified; D72.819 Decreased white blood cell count, unspecified; E87.6 Hypokalemia; M06.9 Rheumatoid arthritis, unspecified; M79.7 Fibromyalgia; F17.210 Nicotine dependence, cigarettes, uncomplicated; K59.00 Constipation, unspecified; F32.9 Major depressive disorder, single episode, unspecified; F41.1 Generalized anxiety disorder; K62.1 Rectal polyp; K64.8 Other hemorrhoids; K44.9 Diaphragmatic hernia without obstruction or gangrene; Z80.3 Family history of malignant neoplasm of breast; Z83.3 Family history of diabetes mellitus; Z98.82 Breast implant status; Z87.440 Personal history of urinary (tract) infections
CPT/HCPCS: 36415; 43239; 45380; 71045; 74177; 76705; 80048; 80053; 80061; 80307; 80320; 81001; 82150; 82728; 83036; 83540; 83550; 83605; 83690; 83735; 84100; 84443; 84484; 84702; 85025; 85048; 85610; 85652; 86141; 86703; 86803; 87086; 87340; 96361; 96374; 96375; G0378; J1885; J2250; J2405; J2470; J3490; J7060